=== PATIENT | male | born 1945 | race Caucasian/White ===

== ENCOUNTER 2017-03-05 11:07 | Observation (INO) ==
[2017-03-05 11:38] LABS: Basophils % 0.7 %; Eosinophils # 0.1 K/mcL (0.0-0.6); Eosinophils % 2.6 %; Hematocrit 41.3 % (37.5-50.1); Hemoglobin 13.4 g/dL (12.9-16.9); Immature Granulocytes % 0.2 % (0-4); Lymphocytes # 1.4 K/mcL (0.6-4.6); Lymphocytes % 26.1 %; Mean Corpuscular HGB Conc 32.4 g/dL (31.6-35.5); Mean Corpuscular Hemoglobin 28.9 pg (28.0-33.3); Mean Corpuscular Volume 89.2 fL (83.0-100.0); Mean Platelet Volume 9.7 fL (9.4-12.4); Monocytes # 0.7 K/mcL (0.0-1.3); Monocytes % 12.1 %; Neutrophils # 3.2 K/mcL (1.6-8.9); Platelet Count 176 K/mcL (140-400); Red Blood Count 4.63 M/mcL (4.19-5.50); Red Cell Distribution Width 13.6 % (11.5-14.5); Segmented Neutrophils % 58.3 %
--- NOTE | 2017-03-05 11:41 | Emergency Department Note ---
Disposition Clinical Impression: Near syncope, Numbness of left hand Chest pain Qualifiers: Chest pain type: unspecified Qualified Code(s): R07.9 - Chest pain, unspecified Disposition: Admitted As Inpatient Condition: Good [facility]Primary Care Provider[facility] - Forms: ED Satisfaction Letter General Adult HPI - General Chief complaint: ED Extremity Problem,Nontraumatic Stated complaint: numbness in left arm// heart pt Time Seen by Provider: 03/05/17 11:20 Source: patient Mode of arrival: private vehicle Limitations: no limitations Nursing Notes Reviewed: Yes Vital Signs Reviewed: Yes - History of Present Illness HPI Narrative: 71-year-old male history of atrial fibrillation, CAD with a sense, hypertension , hyperlipidemia who presents to the ER with a chief complaint of left hand numbness. Patient states his hand started getting numb a few days ago. He denies any recent trauma. He does have a history of shoulder issues and reports that he does need his left shoulder replacement has not set a date. He goes on to say that for the last 4 days he has had intermittent near syncopal episodes. He states that he can be at rest or with exertion. Reports that he gets lightheaded and feels like he is going to pass out. He was sitting around symptoms go away after an hour or 2. He reports he woke up this morning with left-sided chest pain that resolved prior to arrival. He does report dyspnea on exertion which is new for him. Denies any active chest pain. No other complaints. Pt Subjective Complaint: Left arm numbness, chest pain, dyspnea Onset (ago): day(s) Location: chest, left, upper extremity Radiation: non-radiation Pain Scale: 0 Consistency: now resolved Improves with: nothing Worsens with: nothing Associated symptoms: Reports: chest pain, cough (Chronic), shortness of breath. Denies: fever/chills, nausea/vomiting Treatments Prior to Arrival: Aspirin - Related Data Home Medications Medication Instructions Recorded Confirmed RX: Clopidogrel [Plavix] 75 mg PO DAILY 11/17/15 03/05/17 RX: Lisinopril [Zestril] 2.5 mg PO DAILY 11/17/15 03/05/17 RX: Niacin [Niacor] 500 mg PO DAILY 11/17/15 03/05/17 RX: [place]-3/Dha/Epa/Fish Oil [Fish 1,000 mg PO DAILY 11/17/15 03/05/17 Oil 1,000 mg Softgel] Atorvastatin Calcium [Lipitor] 20 mg PO HS 03/05/17 03/05/17 Cholecalciferol (D-3) [Vitamin D] 1,000 unit PO DAILY 03/05/17 03/05/17 Isosorbide MONOnitrate (24 HR) 30 mg PO DAILY 03/05/17 03/05/17 [Imdur] Metoprolol XL (24 HR) Succ [Toprol 25 mg PO DAILY 03/05/17 03/05/17 XL] RX: Terazosin HCl 2 mg PO HS 03/05/17 03/05/17 Rivaroxaban [Xarelto] 20 mg PO DAILY 03/05/17 03/05/17 Allergies Allergy/AdvReac Type Severity Reaction Status Date / Time No Known Allergies Allergy Verified 11/17/15 06:46 All systems ED: reviewed and negative except as stated. Constitutional: Denies: fever Cardiovascular: Reports: chest pain, dyspnea on exertion Respiratory: Reports: cough. Denies: dyspnea Gastrointestinal: Denies: abdominal pain, nausea, vomiting Musculoskeletal: Denies: back pain, neck pain Neurological: Reports: numbness (Left hand) Past Medical History - Past Medical History Attestation: Yes The following information was validated with the patient. Source: patient Medical history: Reports: coronary artery disease, GERD, hyperlipidemia, hypertension, myocardial infarction, other Psychiatric history: Reports: no psych history - Social History Smoking Status: Former smoker Smokeless Tobacco Status: No Alcohol use: Reports: none Drug use: Reports: none Physical Exam - General Limitations: no limitations General appearance: alert, in no apparent distress - Head Head exam: atraumatic, normocephalic, normal inspection - Eye Eye exam: Present: normal appearance, EOMI - ENT ENT exam: normal exam - Neck Neck exam: Present: normal inspection, full ROM - Chest Chest inspection: Present: normal inspection, symmetric chest wall rise - Respiratory Respiratory exam: Present: normal lung sounds bilaterally - Cardiovascular Cardiovascular exam: Present: regular rate, normal rhythm, normal heart sounds - Abdominal Exam Abdominal exam: Present: soft, Non-Tender. Absent: tenderness - Extremities Exam Extremities exam: Present: normal inspection, full ROM - Expanded Upper Extremity Exam Shoulder exam: Present: normal inspection, full ROM Arm exam: Present: normal inspection, full ROM Elbow exam: Present: normal inspection, full ROM Forearm/Wrist exam: Present: normal inspection, full ROM Hand exam: Present: normal inspection, full ROM, other (Patient has decreased sensation to the left hand and distal forearm. Muscle strength is preserved. Radial pulse 2+.) Vascular exam: Normal: radial pulse - Expanded Lower Extremity Exam Hip/Pelvis exam: Present: normal inspection, full ROM Upper leg exam: Present: normal inspection, full ROM Knee exam: Present: normal inspection, full ROM Lower leg exam: Present: normal inspection, full ROM Ankle exam: Present: normal inspection, full ROM Foot/toe exam: Present: normal inspection, full ROM Neurovascular/Tendon exam: Absent: motor deficit - Neurological Exam Neurological exam: Present: alert, other (GCS 15. Decreased sensation to the left hand and distal forearm. Muscle strength symmetric.) - Psychiatric Psychiatric exam: Present: normal affect, normal mood - Skin Skin exam: Present: warm, dry, intact, normal color Course Course Narrative: Patient seen and examined. We will obtain an EKG, chest x-ray as well as labs including troponin and BNP. His numbness in his hand seems more correlated to to his prior shoulder issues. He does endorse near syncope with chest pain this morning. He has an extensive cardiac history with last stent placement in 2014. Patient will likely require admission for chest pain rule out and near syncope. Patient in agreement with plan. Vital Signs Temperature 97.4 F L 03/05/17 11:09 Pulse Rate 82 03/05/17 11:09 Respiratory Rate 16 03/05/17 11:09 Blood Pressure 150/74 03/05/17 11:09 O2 Sat by Pulse Oximetry 97 03/05/17 11:09 Temperature 97.4 F L 03/05/17 11:09 Pulse Rate 60 03/05/17 11:34 Respiratory Rate 16 03/05/17 11:34 Blood Pressure 139/83 03/05/17 11:34 O2 Sat by Pulse Oximetry 97 03/05/17 11:34 Oxygen Delivery Oxygen Delivery Room Air Medical Decision Making - MDM Narrative Medical decision making narrative: 71-year-old male presents to the ER due to left hand numbness. Prior history of shoulder issues and currently reports he needs a total left shoulder replacement in the near future. He also went on to say he was having near- syncope over the last few days as well as chest pain this morning. His an extensive cardiac history with blast him placed in 2014. His EKG here is paced and nonischemic. Chest x-ray is unremarkable. Troponin and BNP are within normal limits. Patient accepted to the hospitalist service. - Lab Data Lab results reviewed: Yes I reviewed the patient's lab results. Result diagrams: 03/05/17 11:29 03/05/17 11:29 Lab Results 03/05/17 03/05/17 03/05/17 Range/Units 11:29 11:29 11:29 WBC 5.5 (4.3-11.1) K/mcL RBC 4.63 (4.19-5.50) M/mcL Hgb 13.4 (12.9-16.9) g/dL Hct 41.3 (37.5-50.1) % MCV 89.2 (83.0-100.0) fL MCH 28.9 (28.0-33.3) pg MCHC 32.4 (31.6-35.5) g/dL RDW 13.6 (11.5-14.5) % Plt Count 176 (140-400) K/mcL MPV 9.7 (9.4-12.4) fL Immature Gran % 0.2 (0-4) % Seg Neutrophils % 58.3 % Lymphocytes % 26.1 % Monocytes % 12.1 % Eosinophils % 2.6 % Basophils % 0.7 % Neutrophils # 3.2 (1.6-8.9) K/mcL Lymphocytes # 1.4 (0.6-4.6) K/mcL Monocytes # 0.7 (0.0-1.3) K/mcL Eosinophils # 0.1 (0.0-0.6) K/mcL Basophils # 0.0 (0.0-0.2) K/mcL Sodium 143 (136-145) mEq/L Potassium 3.8 (3.5-4.5) mEq/L Chloride 107 (98-109) mEq/L Carbon Dioxide 28 (19-29) mEq/L BUN 20 (8-26) mg/dL Creatinine 1.06 (0.72-1.25) mg/dL Est GFR ( Amer) > 60 (> 60) Est GFR (Non-Af Amer) > 60 (> 60) BUN/Creatinine Ratio 19 (6-26) Glucose 66 L (70-99) mg/dL Calculated Osmolality 297 (280-300) Calcium 8.9 (8.6-10.8) mg/dL Troponin I (0-0.03) ng/mL B-Natriuretic Peptide 51 (0-100) pg/mL 03/05/17 Range/Units 11:29 WBC (4.3-11.1) K/mcL RBC (4.19-5.50) M/mcL Hgb (12.9-16.9) g/dL Hct (37.5-50.1) % MCV (83.0-100.0) fL MCH (28.0-33.3) pg MCHC (31.6-35.5) g/dL RDW (11.5-14.5) % Plt Count (140-400) K/mcL MPV (9.4-12.4) fL Immature Gran % (0-4) % Seg Neutrophils % % Lymphocytes % % Monocytes % % Eosinophils % % Basophils % % Neutrophils # (1.6-8.9) K/mcL Lymphocytes # (0.6-4.6) K/mcL Monocytes # (0.0-1.3) K/mcL Eosinophils # (0.0-0.6) K/mcL Basophils # (0.0-0.2) K/mcL Sodium (136-145) mEq/L Potassium (3.5-4.5) mEq/L Chloride (98-109) mEq/L Carbon Dioxide (19-29) mEq/L BUN (8-26) mg/dL Creatinine (0.72-1.25) mg/dL Est GFR ( Amer) (> 60) Est GFR (Non-Af Amer) (> 60) BUN/Creatinine Ratio (6-26) Glucose (70-99) mg/dL Calculated Osmolality (280-300) Calcium (8.6-10.8) mg/dL Troponin I 0.01 (0-0.03) ng/mL B-Natriuretic Peptide (0-100) pg/mL - Radiology Data Radiology results reviewed: Yes I reviewed the patient's radiology results. Chest X-Ray 03/05/17 11:32 IMPRESSION: No acute cardiac or pulmonary disease. D/ / Pierre Lyons MD / Pierre Lyons MD Interpreting Provider: Pierre Lyons MD Chest X-Ray 03/05/17 11:32 IMPRESSION: No acute cardiac or pulmonary disease. D/ / Pierre Lyons MD / Pierre Lyons MD Interpreting Provider: Pierre Lyons MD Head CT 03/05/17 12:54 IMPRESSION: 1. No acute intracranial abnormality. D/ / Igor Goncalves MD / Igor Goncalves MD Interpreting Provider: Igor Goncalves MD - EKG Data EKG #1 EKG attestation: Yes I reviewed and interpreted this EKG. EKG results narrative: EKG demonstrates a paced rhythm with a rate of 61 bpm. Left axis deviation. UT interval prolonged at 209. QRS duration [address]Tc [address] No gross ST elevations or depressions. No acute ischemic findings. No significant changes from previous EKG dated 09/12/14. S.B.A.R. - S.B.A.RMarlene Situation: Demographics, MOA Background: Presenting Complaint, Relevant PMH, Meds, & Allergies Assessment: Vital Signs, Course and respsone to treatment, Exam Concerns, Patient/Family Expectation, Pertinant Lab Results, Outstanding Labs Recommendation: Barrier(s) to disposition, Recommendation based on pending studies, treatments, or consults S.B.A.R. Report Given to: Mike Bianchi Repor Time: 13:02 (requests Head CT)
[2017-03-05 11:45] LABS: BUN/Creatinine Ratio 19 (6-26); Blood Urea Nitrogen 20 mg/dL (8-26); Calcium 8.9 mg/dL (8.6-10.8); Carbon Dioxide 28 mEq/L (19-29); Chloride 107 mEq/L (98-109); Glucose 66 mg/dL (70-99); Osmolality,Calculated 297 (280-300); Potassium 3.8 mEq/L (3.5-4.5); Sodium 143 mEq/L (136-145); eGFR For African Americans > 60 (> 60); eGFR For Non-African Americans > 60 (> 60)
[2017-03-05] MEDS ORDERED: 0.9 % Sodium Chloride 1,000 ML IVC ONE (11:47)
--- NOTE | 2017-03-05 12:32 | Emergency Department Note ---
Disposition Clinical Impression: Near syncope, Numbness of left hand Chest pain Qualifiers: Chest pain type: unspecified Qualified Code(s): R07.9 - Chest pain, unspecified Disposition: Admitted As Inpatient Condition: Good [facility]: [facility] [Primary Care Provider] - Forms: ED Satisfaction Letter General Adult HPI - General Chief complaint: ED Extremity Problem,Nontraumatic Stated complaint: numbness in left arm// heart pt Time Seen by Provider: 03/05/17 11:20 Source: patient Mode of arrival: private vehicle Limitations: no limitations - History of Present Illness Location: chest, left, upper extremity Pain Scale: 0 Improves with: nothing Worsens with: nothing Associated symptoms: Reports: chest pain, cough (Chronic), shortness of breath. Denies: fever/chills, nausea/vomiting Treatments Prior to Arrival: Aspirin - Related Data Home Medications Medication Instructions Recorded Confirmed Aspirin Enteric Coated [Aspirin EC] 81 mg PO DAILY 11/17/15 11/17/15 Atorvastatin [Lipitor] 40 mg PO HS 11/17/15 11/17/15 Carvedilol 0.5 tab PO BID 11/17/15 11/17/15 Clopidogrel [Plavix] 75 mg PO DAILY 11/17/15 11/17/15 Ergocalciferol (VITAMIN D2) 2,000 unit PO DAILY 11/17/15 11/17/15 [Vitamin D2] HYDROcodone/Acet 5/325 mg [[place] 1 tab PO Q8H PRN 11/17/15 11/17/15 5-325 mg] Isosorbide MONOnitrate (24 HR) 30 mg PO DAILY 11/17/15 11/17/15 [Imdur] Lisinopril [Zestril] 5 mg PO DAILY 11/17/15 11/17/15 Magnesium Oxide [Magnesium] 400 mg PO DAILY 11/17/15 11/17/15 Niacin [Niacor] 500 mg PO DAILY 11/17/15 11/17/15 Nitroglycerin [Nitrostat] 0.4 mg SL DAILY PRN 11/17/15 11/17/15 [place]-3/Dha/Epa/Fish Oil [Fish Oil 1,000 mg PO DAILY 11/17/15 11/17/15 1,000 mg Softgel] Potassium 99 mg PO DAILY 11/17/15 11/17/15 Ranitidine HCl [Zantac] 300 mg PO HS 11/17/15 11/17/15 Terazosin HCl 30 mg PO DAILY 11/17/15 11/17/15 Previous Rx's Medication Instructions Recorded Aspirin Enteric Coated [Aspirin EC] 81 mg PO DAILY #21 tablet. 11/16/15 OxyCODONE Immed Rel [Roxicodone 5 5 - 10 mg PO Q6HR PRN #40 tablet 11/16/15 MG] Allergies Allergy/AdvReac Type Severity Reaction Status Date / Time No Known Allergies Allergy Verified 11/17/15 06:46 Constitutional: Denies: fever Cardiovascular: Reports: chest pain, dyspnea on exertion Respiratory: Reports: cough. Denies: dyspnea Gastrointestinal: Denies: abdominal pain, nausea, vomiting Musculoskeletal: Denies: back pain, neck pain Neurological: Reports: numbness (Left hand) Past Medical History - Past Medical History Medical history: Reports: coronary artery disease, GERD, hyperlipidemia, hypertension, myocardial infarction, other Psychiatric history: Reports: no psych history - Social History Smoking Status: Former smoker Smokeless Tobacco Status: No Alcohol use: Reports: none Drug use: Reports: none Physical Exam - General Limitations: no limitations General appearance: alert, in no apparent distress Course - Reevaluation(s) Reevaluation #1: I saw the patient with the resident, Dr. Marquez. Patient presented with several days of feeling weak. Episodes of just not feeling right and when that happens he has to go and lay down. He does not report chest pain episodes over the past few days but this morning in bed had a chest tightness on the left side of his chest that seemed to radiate to his left arm. He has an extensive cardiac history with multiple stents. Overall story is concerning for worsening cardiac state. At this time he is symptom-free. EKG looks alright. Labs look alright. Nonetheless think he needs to be admitted to the hospital for rule out NM. Time: 12:33 Vital Signs Temperature 97.4 F L 03/05/17 11:09 Pulse Rate 82 03/05/17 11:09 Respiratory Rate 16 03/05/17 11:09 Blood Pressure 150/74 03/05/17 11:09 O2 Sat by Pulse Oximetry 97 03/05/17 11:09 Temperature 97.4 F L 03/05/17 11:09 Pulse Rate 60 03/05/17 11:34 Respiratory Rate 16 03/05/17 11:34 Blood Pressure 139/83 03/05/17 11:34 O2 Sat by Pulse Oximetry 97 03/05/17 11:34 Oxygen Delivery Oxygen Delivery Room Air Medical Decision Making - Lab Data Result diagrams: 03/05/17 11:29 03/05/17 11:29 Lab Results 03/05/17 03/05/17 03/05/17 Range/Units 11:29 11:29 11:29 WBC 5.5 (4.3-11.1) K/mcL RBC 4.63 (4.19-5.50) M/mcL Hgb 13.4 (12.9-16.9) g/dL Hct 41.3 (37.5-50.1) % MCV 89.2 (83.0-100.0) fL MCH 28.9 (28.0-33.3) pg MCHC 32.4 (31.6-35.5) g/dL RDW 13.6 (11.5-14.5) % Plt Count 176 (140-400) K/mcL MPV 9.7 (9.4-12.4) fL Immature Gran % 0.2 (0-4) % Seg Neutrophils % 58.3 % Lymphocytes % 26.1 % Monocytes % 12.1 % Eosinophils % 2.6 % Basophils % 0.7 % Neutrophils # 3.2 (1.6-8.9) K/mcL Lymphocytes # 1.4 (0.6-4.6) K/mcL Monocytes # 0.7 (0.0-1.3) K/mcL Eosinophils # 0.1 (0.0-0.6) K/mcL Basophils # 0.0 (0.0-0.2) K/mcL Sodium 143 (136-145) mEq/L Potassium 3.8 (3.5-4.5) mEq/L Chloride 107 (98-109) mEq/L Carbon Dioxide 28 (19-29) mEq/L BUN 20 (8-26) mg/dL Creatinine 1.06 (0.72-1.25) mg/dL Est GFR ( Amer) > 60 (> 60) Est GFR (Non-Af Amer) > 60 (> 60) BUN/Creatinine Ratio 19 (6-26) Glucose 66 L (70-99) mg/dL Calculated Osmolality 297 (280-300) Calcium 8.9 (8.6-10.8) mg/dL Troponin I (0-0.03) ng/mL B-Natriuretic Peptide 51 (0-100) pg/mL 03/05/17 Range/Units 11:29 WBC (4.3-11.1) K/mcL RBC (4.19-5.50) M/mcL Hgb (12.9-16.9) g/dL Hct (37.5-50.1) % MCV (83.0-100.0) fL MCH (28.0-33.3) pg MCHC (31.6-35.5) g/dL RDW (11.5-14.5) % Plt Count (140-400) K/mcL MPV (9.4-12.4) fL Immature Gran % (0-4) % Seg Neutrophils % % Lymphocytes % % Monocytes % % Eosinophils % % Basophils % % Neutrophils # (1.6-8.9) K/mcL Lymphocytes # (0.6-4.6) K/mcL Monocytes # (0.0-1.3) K/mcL Eosinophils # (0.0-0.6) K/mcL Basophils # (0.0-0.2) K/mcL Sodium (136-145) mEq/L Potassium (3.5-4.5) mEq/L Chloride (98-109) mEq/L Carbon Dioxide (19-29) mEq/L BUN (8-26) mg/dL Creatinine (0.72-1.25) mg/dL Est GFR ( Amer) (> 60) Est GFR (Non-Af Amer) (> 60) BUN/Creatinine Ratio (6-26) Glucose (70-99) mg/dL Calculated Osmolality (280-300) Calcium (8.6-10.8) mg/dL Troponin I 0.01 (0-0.03) ng/mL B-Natriuretic Peptide (0-100) pg/mL Attestation Statement - Attestation Attestation: I, Dr. Ashley, examined this patient [id number] and my medical decision- making was reviewed with the Resident Physician, Dr. Marquez. I agree with the documented findings, disposition and treatment plan as described except to the extent set forth below. Please see my progress notes for details.
[2017-03-05] MEDS ORDERED: *HR* Morphine 2 MG/ML SYRINGE IVP PRN (13:57)
[2017-03-05] MEDS ORDERED: Naloxone 0.4 MG/ML INJ IVP PRN (13:57)
[2017-03-05] MEDS ORDERED: Ondansetron 4 MG/2 ML VIAL IVP PRN (13:57)
[2017-03-05] MEDS ORDERED: *HR* HYDROcodone/Acet 5/325 mg TABLET PO PRN (13:57)
[2017-03-05] MEDS ORDERED: Acetaminophen 325 MG TABLET PO PRN (13:57)
[2017-03-05] MEDS ORDERED: *HR* Dextrose 50 % in Water (Syg) 50 ML SYRINGE IVP PRN (14:18)
[2017-03-05] MEDS ORDERED: D5% in Water 1,000 ML IVC PRN (14:18)
[2017-03-05] MEDS ORDERED: Dextrose Gel 15 GM PO PRN ×2 (14:18)
[2017-03-05] MEDS ORDERED: Nitroglycerin 0.4 MG TAB.SUBL SL PRN (14:26)
--- NOTE | 2017-03-05 15:28 | Internal Med History&Physical ---
<Mike Zimmerman - Last Filed: 03/05/17 16:13> Date of Encounter: 03/05/17 Time of Encounter: 13:30 Assessment and Plan (1) Chest pain Current visit: Yes Status: Acute Patient presents with left-sided chest pain that he states began several days ago and has become worse. Pain is accompanied by numbness of the lower left arm and hand that has not resolved. Patient's initial troponin on admission to ED was 0.01. Patient's risk factors include coronary artery disease, hyperlipidemia, hypertension, and previous myocardial infarctions. Patient also reports he smoked 1 PPD up until 1994. Cardiology consult ordered. Patient to be placed on continuous cardiac telemetry with supplemental O2, troponins to be trended x2, nitro PRN, will continue patient's HTN and HLD medications, aspirin therapy. Echocardiogram ordered. Will digress to cardiology to decide if stress test is appropriate based on echocardiogram results and consult recommendations. Qualifiers: Chest pain type: other chest pain Qualified Code(s): R07.89 - Other chest pain; R07.8 - Other chest pain (2) Numbness of left hand Current visit: Yes Status: Acute Patient presents with acute numbness of the lower left arm and hand that began three days ago and coincided with patient's reported chest pain. Patient states CP is left-sided. Patient denies previous history of these symptoms before. Original concern was for possible neuro deficits, however patient is neurologically intact on examination with strength equal bilaterally. Initial troponin 0.01. CT of the head shows no acute intracranial abnormality. Patient to be monitored for further neuro deficits. Patient placed on continuous cardiac telemetry with troponin trending. (3) GERD (gastroesophageal reflux disease) Current visit: Yes Status: Chronic Patient presents with history of chronic GERD. IVP Zofran Q6 PRN and IVP Protonix 40 mg daily ordered. Qualifiers: Esophagitis presence: esophagitis presence not specified Qualified Code(s) : K21.9 - Gastro-esophageal reflux disease without esophagitis (4) CAD (coronary artery disease) Current visit: Yes Status: Chronic Patient presents with history of CAD and current chest pain symptoms. Patient's initial troponin on admission to [facility] was 0.01. Patient describes CP as left- sided with numbness in his left lower arm and hand since this morning. Patient placed on continuous cardiac telemetry with troponins trended 2. Nitroglycerin when necessary. Will continue patient's HLD and HTN medications. Daily aspirin therapy. Cardiology consult placed in the ED. Will digress to cardiology to decide if stress test is appropriate based on echocardiogram results and consult recommendations. Qualifiers: Coronary Disease-Associated Artery/Lesion type: [place] artery [place] vs. transplanted heart: unspecified whether [place] or transplanted heart Associated angina: angina presence unspecified Qualified Code(s): I25.10 - Atherosclerotic heart disease of [place] coronary artery without angina pectoris (5) HLD (hyperlipidemia) Current visit: Yes Status: Chronic Patient presents with history of chronic hyperlipidemia. Lipid panel ordered and will continue patient's Lipitor. Qualifiers: Hyperlipidemia type: pure hypercholesterolemia Qualified Code(s): E78.00 - Pure hypercholesterolemia, unspecified; E78.0 - Pure hypercholesterolemia (6) HTN (hypertension) Current visit: Yes Status: Chronic Patient presents with history of chronic hypertension. Will monitor patient vital signs and continue patient's Imdur, lisinopril, Terazosin, and metoprolol. Qualifiers: Hypertension type: essential hypertension Qualified Code(s): I10 - Essential (primary) hypertension (7) Pacemaker Current visit: Yes Status: Chronic Patient presents with history of pacemaker/AICD placement. Patient reports this is his second pacemaker. Will continue patient's Xarelto and Plavix. (8) DVT prophylaxis Current visit: Yes Status: Acute Patient to be placed on DVT prophylaxis due to current admission protocol and current symptoms. Will continue patient's Xarelto and Plavix. Internal Medicine - H&P: HPI Chief complaint: Chest pain/Numbness in left arm and hand Admitted From: Emergency Dept Plans for Post Hospital Care: Home History of present illness: Mr. Lopez is a 71 year old male who presents from the ED with chief complaint of left-sided chest pain and numbness of the left lower arm and hand for the past three days that has become progressively worse. Patient also reports left shoulder pain due to his left shoulder needing replaced. Patient also reports weakness, SOB, and dizziness. Patient denies syncope or pre-syncope. He states his CP and SOB worsen with exertion. Mr. Lopez denies recent illness, cough, fever, chills, nausea, vomiting, diarrhea, constipation, abdominal pain, headache, changes in vision, presyncope or syncope. Patient's past medical history includes atrial fibrillation with pacemaker placement, coronary artery disease, hypertension, hyperlipidemia, GERD, and previous myocardial infarctions. She reports he was a former smoker smoking 1 pack per day up until 1994. Patient's initial troponin was 0.[address] on [address] ED[address] CT of the head to rule out possible CVA related to left arm/hand numbness shows no acute intracranial abnormaility. Patient is currently hemodynamically stable and information was taken from patient, chart review, and previous medical records. Mr. Lopez is at high risk for cardiac event based on current symptoms and risk factors and will be placed as observation status with consult to cardiology placed. Time spent with patient and family greater than 40 minutes. Past Med Surg Social Fam HX - Past Medical History Source: patient, old records reviewed Medical history: coronary artery disease, GERD, hyperlipidemia, hypertension, myocardial infarction, other Psychiatric history: no psych history - Past Surgical History Surgical History: pacemaker/AICD - Social History Smoking Status: Former smoker Packs per day: 1 but quit in 1994 Smokeless Tobacco Status: No Alcohol use: none Drug use: none Occupational status: retired Current living situation: Home, With Family Activity Level: Independent ambulation Recent Out of Country Travel Within the Last 8 Weeks: No Exposure or Possible Exposure to Illness During Travel: No - Family History Father Race: Family Member Ethnicity: Non- Living Status: Age at : 80 Cause of : Old age Hx Family Medical Disorders: No Mother Race: Family Member Ethnicity: Non- Living Status: Age at : 84 Cause of : ND Hx Family Cardiac Disorders: Yes (ND, HLD, HTN, HD) Hx Family Endocrine Disorder: Yes (DM) Brother Race: Family Member Ethnicity: Non- Living Status: Age at : 62 Cause of : Leukemia Hx Family Cardiac Disorders: Yes (HD) Hx Family Cancer: Yes (Leukemia) Hx Family Endocrine Disorder: Yes (DM) Sister Race: Family Member Ethnicity: Non- Living Status: Age at : 43 Cause of : Cancer Hx Family Cardiac Disorders: Yes (HD) Hx Family Cancer: Yes (Unknown) Hx Family Endocrine Disorder: Yes (DM) Internal Medicine - H&P: Meds Clopidogrel [Plavix] 75 mg PO DAILY 11/17/15 [History] Lisinopril [Zestril] 2.5 mg PO DAILY 11/17/15 [History] Niacin [Niacor] 500 mg PO DAILY 11/17/15 [History] [place]-3/Dha/Epa/Fish Oil [Fish Oil 1,000 mg Softgel] 1,000 mg PO DAILY 11/17/15 [History] Atorvastatin Calcium [Lipitor] 20 mg PO HS 03/05/17 [History] Cholecalciferol (D-3) [Vitamin D] 1,000 unit PO DAILY 03/05/17 [History] Isosorbide MONOnitrate (24 HR) [Imdur] 30 mg PO DAILY 03/05/17 [History] Metoprolol XL (24 HR) Succ [Toprol XL] 25 mg PO DAILY 03/05/17 [History] Rivaroxaban [Xarelto] 20 mg PO DAILY 03/05/17 [History] Terazosin HCl 2 mg PO HS 03/05/17 [History] 3 Allergy/AdvReac Type Severity Reaction Status Date / Time No Known Allergies Allergy Verified 11/17/15 06:46 All Systems PM: A 10-system review of systems was performed and is negative for pertinent findings except as documented above in the HPI. - Constitutional Constitutional: no chills, no fever(s), no night sweats - EENT Eyes: no change in vision, no discharge, no pain, no photophobia Ears: no ear discharge, no ear pain, no tinnitus Nose, mouth and throat: no dysphagia, no nasal discharge, no neck pain, no sore throat - Breasts Breasts: as per HPI - Cardiovascular Cardiovascular ROS IM: as per HPI, chest pain, dyspnea, dyspnea on exertion, lightheadedness - Respiratory Respiratory: as per HPI, dyspnea, dyspnea on exertion - Gastrointestinal Gastrointestinal: no abdominal pain, no diarrhea, no hematemesis, no hematochezia, no melena, no nausea, no vomiting - Genitourinary Genitourinary ROS male: as per HPI - Musculoskeletal Musculoskeletal ROS IM: arthralgias, no numbness, no tingling - Integumentary Integumentary IM: no rash, no unusual bruising - Neurological Neurological ROS: numbness (Left lower arm and hand that started today), weakness (Left lower arm and hand), no confusion, no convulsions, no focal weakness, no tingling, no tremor(s) - Psychiatric Psychiatric: as per HPI - Endocrine Endocrine IM: as per HPI - Hematologic/Lymphatic Hematologic/Lymphatic: no easy bruising - Allergic/Immunologic Allergic/Immunologic: as per HPI - Constitutional Vitals: Temp Pulse Resp BP Pulse Ox 98.1 F 61 16 161/89 97 03/05/17 15:20 03/05/17 15:20 03/05/17 15:20 03/05/17 15:20 03/05/17 15:20 General appearance: Present: cooperative, A&O X 3, pleasant, no acute distress, answers questions appropriately - Head Head exam: Present: atraumatic, normocephalic - Eye Eye exam: Present: PERRL, conjuntiva pink, sclera anicteric Pupils: Present: PERRL - ENT ENT exam: Present: normal exam, normal external ear exam - Neck Neck exam general surgery: Present: normal inspection, supple, trachea midline. Absent: lymphadenopathy - Respiratory Respiratory exam: Present: CTAB. Absent: accessory muscle use, rales, rhonchi, wheezes - Cardiovascular Cardiovascular exam: Present: RRR, +S1, +S2. Absent: diastolic murmur, gallop, rubs, systolic murmur - GI/Abdominal GI/Abdominal exam: Present: normal bowel sounds, soft, no peritoneal signs. Absent: distended, tenderness - Rectal Rectal exam: Present: deferred - Additional comments: exam deferred. - Extremities Exam Extremities exam: Present: warm, radial pulses palpable and symmetrical. Absent : calf tenderness, cyanotic, pedal edema - Back Exam Back exam: Present: normal inspection - Neurological Exam Neurological exam: Present: CN II-XII intact, oriented X3, no focal deficits. Absent: pronater drift, facial droop, speech deficit - Psychiatric Psychiatric exam: Present: normal affect, normal mood - Skin Skin exam: Present: dry, intact Internal Med - H&P Results - Labs CBC & Chem 7: 03/05/17 11:29 03/05/17 11:29 - EKG Data Prior EKG available for review: yes When compared to previous EKG: there is no significant change EKG comments: 03/05/17 15:36 EKG dated 09/12/14 shows electronic atrial pacemaker, low QRS voltage in the extremity leads, abnormal rhythm ECG. EKG dated 03/05/17 shows electronic atrial pacemaker, electronic ventricular pacemaker, abnormal rhythm ECG. - Diagnostic Studies Chest x-ray Additional comments: Impressions Chest X-Ray 03/05/17 11:32 IMPRESSION: No acute cardiac or pulmonary disease. D/ / Pierre Lyons MD / Pierre Lyons MD Interpreting Provider: Pierre Lyons MD CT scan - head Additional comments: Impressions Head CT 03/05/17 12:54 IMPRESSION: 1. No acute intracranial abnormality. D/ / Igor Goncalves MD / Igor Goncalves MD Interpreting Provider: Igor Goncalves MD <Greyson Radford - Last Filed: 03/05/17 20:30> Date of Encounter: 03/05/17 Internal Medicine - H&P: HPI History of present illness: Mr. Lopez is a 71 year old male All Systems PM: A 10-system review of systems was performed and is negative for pertinent findings except as documented above in the HPI. - Constitutional Vitals: Temp Pulse Resp BP Pulse Ox 97.9 F 61 15 156/81 97 03/05/17 19:04 03/05/17 19:04 03/05/17 19:04 03/05/17 19:04 03/05/17 19:04 Internal Med - H&P Results - Labs CBC & Chem 7: 03/05/17 11:29 03/05/17 11:29 Labs: Cardiac Enzymes 03/05/17 Range/Units 17:07 Troponin I 0.00 (0-0.03) ng/mL - Attending Attestation I have seen and examined the patient. I reviewed the orders and the note. Patient is a 71-year-old male with a past medical history of coronary artery disease, GERD, hyperlipidemia and hypertension. Patient presented to the ED with complaints of chest pain and numbness in left hand. Initial EKG revealed paced rhythm with a rate of 61 and left axis deviation. No acute ST changes. Troponin is negative. BNP peptide is normal. We will trend troponin. Patient is on aspirin and Plavix and salt. He is also on Lipitor. Cardiology will evaluate patient. Stress echo may need to be done. Patient states he feels better at this time. No other complaints. Heart rate 61, blood pressure 156/81, O2 sat 97% on room air. Heart S1-S2 positive. Lungs bilateral good air entry no wheezes or crackles. Abdomen soft nontender. Extremities all pulses strong. Neurological patient is awake and alert, strength 5 out of 5 in all extremities, patient does have mild weakness in left arm due to left shoulder osteoarthritis
[2017-03-05] MEDS: Insulin LISPRO 300 UNITS/3 ML VIAL SQ SCH ×2 (18:38→20:05)
[2017-03-05] MEDS: Pantoprazole 40 MG VIAL IVP SCH (18:44)
[2017-03-06 01:06] LABS: Basophils % 0.6 %; Eosinophils # 0.2 K/mcL (0.0-0.6); Eosinophils % 3.3 %; Hematocrit 38.8 % (37.5-50.1); Hemoglobin 12.6 g/dL (12.9-16.9); Immature Granulocytes % 0.2 % (0-4); Lymphocytes # 1.7 K/mcL (0.6-4.6); Lymphocytes % 31.4 %; Mean Corpuscular HGB Conc 32.5 g/dL (31.6-35.5); Mean Corpuscular Hemoglobin 28.4 pg (28.0-33.3); Mean Corpuscular Volume 87.6 fL (83.0-100.0); Mean Platelet Volume 10.2 fL (9.4-12.4); Monocytes # 0.6 K/mcL (0.0-1.3); Monocytes % 11.2 %; Neutrophils # 2.9 K/mcL (1.6-8.9); Platelet Count 170 K/mcL (140-400); Red Blood Count 4.43 M/mcL (4.19-5.50); Red Cell Distribution Width 13.5 % (11.5-14.5); Segmented Neutrophils % 53.3 %
[2017-03-06 01:10] LABS: INR 1.3
[2017-03-06 01:12] LABS: Activated Partial Thrombo Time 37.1 Seconds (26.0-36.0)
[2017-03-06 01:17] LABS: BUN/Creatinine Ratio 15 (6-26); Blood Urea Nitrogen 18 mg/dL (8-26); Calcium 8.3 mg/dL (8.6-10.8); Carbon Dioxide 26 mEq/L (19-29); Chloride 107 mEq/L (98-109); Chol/HDL Ratio 5.4 (0-4.9); Cholesterol 163 mg/dL (< 200); Glucose 98 mg/dL (70-99); HDL Cholesterol 30 mg/dL (40-59); LDL Cholesterol,Calculated 117 mg/dL (0-99); Magnesium 1.9 mg/dL (1.6-2.6); Osmolality,Calculated 292 (280-300); Sodium 140 mEq/L (136-145); Triglycerides 80 mg/dL (< 150); eGFR For African Americans > 60 (> 60); eGFR For Non-African Americans > 60 (> 60)
[2017-03-06 02:03] LABS: Hemoglobin A1C 5.6 %
[2017-03-06] MEDS: Insulin LISPRO 300 UNITS/3 ML VIAL SQ SCH ×4 (08:48→20:01)
[2017-03-06] MEDS: Pantoprazole 40 MG VIAL IVP SCH (08:49)
[2017-03-06] MEDS: Isosorbide MONOnitrate (24 HR) 30 MG TAB.ER.24H PO SCH (08:49)
[2017-03-06] MEDS: Metoprolol XL (24 HR) Succ 25 MG TAB.ER.24H PO SCH (08:50)
[2017-03-06] MEDS: Cholecalciferol (D-3) 1,000 UNIT TABLET PO SCH (08:50)
[2017-03-06] MEDS: Aspirin Enteric Coated 81 MG Tablet PO SCH (08:50)
[2017-03-06] MEDS: Niacin (24 HR) 500 MG TAB.ER.24H PO SCH (08:50)
[2017-03-06] MEDS: *HR* Rivaroxaban 10 MG TABLET PO SCH (08:50)
--- NOTE | 2017-03-06 17:03 | Internal Med Progress Note ---
Date of Encounter: 03/06/17 Time of Encounter: 10:30 - Assessment and plan (1) Chest pain Current Visit: Yes Status: Acute Assessment and plan: Patient denies chest pain today. He reports to me that the chest pain he only had one time it lasted 1 minute. Patient reports prior IN with stents, he has history of hypertension and coronary artery disease, he also is a former smoker. In admission note as a cardiology consult was ordered, I ordered a chest now, patient will be seen by cardiology in the morning. We will continue with telemetry with oxygen as needed to maintain sats greater than 92%. Will use nitroglycerin when necessary and continue home medications. Echocardiogram showed LVEF of 50-55% with normal systolic function, moderate diastolic dysfunction, no significant valvular dysfunction. Patient has no prior echocardiogram or any cardiovascular notes that all to compare. Troponins were negative 3. Patient's A1c is 5.6, cholesterol triglycerides are within normal limits. Cardiology consult in the morning, will defer to them regarding decision whether stress as necessary. Qualifiers: Chest pain type: other chest pain Qualified Code(s): R07.89 - Other chest pain; R07.8 - Other chest pain (2) CAD (coronary artery disease) Current Visit: Yes Status: Chronic Assessment and plan: Plan as above. Continue aspirin, statin, Plavix, Imdur, beta huber, and Xarelto. Qualifiers: Coronary Disease-Associated Artery/Lesion type: [place] artery [place] vs. transplanted heart: unspecified whether [place] or transplanted heart Associated angina: angina presence unspecified Qualified Code(s): I25.10 - Atherosclerotic heart disease of [place] coronary artery without angina pectoris (3) HTN (hypertension) Current Visit: Yes Status: Chronic Assessment and plan: Chronic. Continue home medications. Well-controlled in inpatient setting. Qualifiers: Hypertension type: essential hypertension Qualified Code(s): I10 - Essential (primary) hypertension (4) HLD (hyperlipidemia) Current Visit: Yes Status: Chronic Assessment and plan: Continue home medications. Qualifiers: Hyperlipidemia type: pure hypercholesterolemia Qualified Code(s): E78.00 - Pure hypercholesterolemia, unspecified; E78.0 - Pure hypercholesterolemia (5) Numbness of left hand Current Visit: Yes Status: Acute Assessment and plan: Patient reports numbness of left hand that is most likely not associated with the chest pain as they started at different times. Patient states that he is aware that he needs a left shoulder replacement. He is seeing Dr. Ceballos and had his right shoulder and left knee replaced by him. Head CT was negative, strengths are equal bilaterally in arms. Pulses are equal bilaterally. We will continue to monitor. (6) GERD (gastroesophageal reflux disease) Current Visit: Yes Status: Chronic Assessment and plan: Chronic. Continue home medications. Qualifiers: Esophagitis presence: esophagitis presence not specified Qualified Code(s) : K21.9 - Gastro-esophageal reflux disease without esophagitis (7) DVT prophylaxis Current Visit: Yes Status: Acute Assessment and plan: Patient is on aspirin, Plavix, and relative to. - Time Spent With Patient less than 15 minutes - Subjective Interval history: Patient was seen and assessed at bedside at 10:30 AM. He denies chest pain currently, however he did report left chest pain that was sharp, rated 3/10 with shortness of breath and no radiation, no nausea vomiting, no diaphoresis that lasted 1 minute. 2 days prior to admission he reports nausea and states, I felt real bad." Patient seems unable to describe how he felt other than nausea that was relieved with rest sometimes weak and dizzy. Patient still reports left hand and reports that he has a bad shoulder and is aware that he needs a shoulder replacement by Dr. Ceballos. His last stress test was here at [facility] and Dr. Ruiz is his primary clinical product manager. The pain is not reproducible. - Constitutional Vitals: Temp Pulse Resp BP Pulse Ox 98.5 F 60 14 99/62 96 03/06/17 16:00 03/06/17 16:00 03/06/17 16:00 03/06/17 16:00 03/06/17 16:00 General appearance: Present: cooperative, A&O X 3, pleasant, no acute distress, answers questions appropriately - Head Head exam: Present: atraumatic, normal inspection, normocephalic - Eye Eye exam: Present: conjuntiva pink, sclera anicteric - Neck Neck exam general surgery: Present: normal inspection, supple, trachea midline. Absent: lymphadenopathy, tenderness - Respiratory Respiratory exam: Present: CTAB. Absent: accessory muscle use, rales, rhonchi, wheezes - Cardiovascular Cardiovascular exam: Present: RRR, +S1, +S2. Absent: bradycardia, diastolic murmur, gallop, rubs, systolic murmur, tachycardia - GI/Abdominal GI/Abdominal exam: Present: normal bowel sounds, soft. Absent: distended, hepatomegaly, tenderness - Extremities Exam Extremities exam: Present: normal inspection, warm, radial pulses palpable and symmetrical. Absent: calf tenderness, cyanotic, pedal edema - Neurological Exam Neurological exam: Present: alert, oriented X3. Absent: facial droop, speech deficit - Skin Skin exam: Present: dry, intact, normal color, warm. Absent: rash Internal Medicine: Result - Labs CBC & Chem 7: 03/06/17 00:42 03/06/17 00:42 Labs: Short CBC 03/06/17 Range/Units 00:42 WBC 5.4 (4.3-11.1) K/mcL Hgb 12.6 L (12.9-16.9) g/dL Hct 38.8 (37.5-50.1) % Plt Count 170 (140-400) K/mcL Neutrophils # 2.9 (1.6-8.9) K/mcL BMP 03/06/17 00:42 Sodium 140 Potassium 4.0 Chloride 107 Carbon Dioxide 26 BUN 18 Creatinine 1.17 Glucose 98 Calcium 8.3 L Cardiac Enzymes 03/05/17 03/06/17 Range/Units 17:07 00:42 Troponin I 0.00 0.03 (0-0.03) ng/mL - ABG Interpretation ABG results: PT/INR, D-dimer PT 14.0 Seconds (9.4-12.1) H 03/06/17 00:42 Consult Discharge Plan - Plan [facility]errals: [facility]Primary Care Provider[facility] -
[2017-03-07 04:36] LABS: Basophils % 0.6 %; Eosinophils # 0.2 K/mcL (0.0-0.6); Immature Granulocytes % 0.3 % (0-4); Lymphocytes # 2.1 K/mcL (0.6-4.6); Lymphocytes % 32.6 %; Mean Corpuscular HGB Conc 33.3 g/dL (31.6-35.5); Mean Corpuscular Hemoglobin 29.9 pg (28.0-33.3); Mean Corpuscular Volume 89.7 fL (83.0-100.0); Mean Platelet Volume 10.5 fL (9.4-12.4); Monocytes # 0.7 K/mcL (0.0-1.3); Monocytes % 11.6 %; Neutrophils # 3.3 K/mcL (1.6-8.9); Platelet Count 178 K/mcL (140-400); Red Blood Count 4.35 M/mcL (4.19-5.50); Red Cell Distribution Width 13.7 % (11.5-14.5); Segmented Neutrophils % 51.9 %
[2017-03-07 04:49] LABS: BUN/Creatinine Ratio 18 (6-26); Blood Urea Nitrogen 24 mg/dL (8-26); Carbon Dioxide 27 mEq/L (19-29); Chloride 105 mEq/L (98-109); Glucose 90 mg/dL (70-99); Osmolality,Calculated 294 (280-300); Potassium 4.2 mEq/L (3.5-4.5); Sodium 140 mEq/L (136-145); eGFR For African Americans > 60 (> 60); eGFR For Non-African Americans 52 (> 60)
[2017-03-07] MEDS: Insulin LISPRO 300 UNITS/3 ML VIAL SQ SCH ×4 (08:09→19:52)
[2017-03-07] MEDS: Metoprolol XL (24 HR) Succ 25 MG TAB.ER.24H PO SCH (08:10)
[2017-03-07] MEDS: *HR* Rivaroxaban 10 MG TABLET PO SCH (08:10)
[2017-03-07] MEDS: Cholecalciferol (D-3) 1,000 UNIT TABLET PO SCH (08:10)
[2017-03-07] MEDS: Isosorbide MONOnitrate (24 HR) 30 MG TAB.ER.24H PO SCH (08:10)
[2017-03-07] MEDS: Niacin (24 HR) 500 MG TAB.ER.24H PO SCH (08:10)
[2017-03-07] MEDS: Aspirin Enteric Coated 81 MG Tablet PO SCH (08:10)
[2017-03-07] MEDS: Pantoprazole 40 MG VIAL IVP SCH (08:10)
[2017-03-07] MEDS: 0.9 % Sodium Chloride 1,000 ML IVC SCH (08:29)
--- NOTE | 2017-03-07 11:54 | Internal Med Progress Note ---
Date of Encounter: 03/07/17 Time of Encounter: 07:50 - Assessment and plan (1) Chest pain Current Visit: Yes Status: Acute Assessment and plan: Patient denies chest pain today. Echocardiogram showed LVEF of 50-55% with normal systolic function, moderate diastolic dysfunction, no significant valvular dysfunction. Patient has no prior echocardiogram or any cardiovascular notes that all to compare. Troponins were negative 3. Patient's A1c is 5.6, cholesterol triglycerides are within normal limits. Stress test in a.m. NPO after midnight and Imdur has been held. Continue rib bender vitals and labs. Qualifiers: Chest pain type: other chest pain Qualified Code(s): R07.89 - Other chest pain; R07.8 - Other chest pain (2) CAD (coronary artery disease) Current Visit: Yes Status: Chronic Assessment and plan: Plan as above. Continue aspirin, statin, Plavix, Imdur, beta huber, and Xarelto. Imdur held for stress tomorrow. Qualifiers: Coronary Disease-Associated Artery/Lesion type: [place] artery [place] vs. transplanted heart: unspecified whether [place] or transplanted heart Associated angina: angina presence unspecified Qualified Code(s): I25.10 - Atherosclerotic heart disease of [place] coronary artery without angina pectoris (3) HTN (hypertension) Current Visit: Yes Status: Chronic Assessment and plan: Chronic. Continue home medications. Well-controlled in inpatient setting. Qualifiers: Hypertension type: essential hypertension Qualified Code(s): I10 - Essential (primary) hypertension (4) HLD (hyperlipidemia) Current Visit: Yes Status: Chronic Assessment and plan: Continue home medications. Qualifiers: Hyperlipidemia type: pure hypercholesterolemia Qualified Code(s): E78.00 - Pure hypercholesterolemia, unspecified; E78.0 - Pure hypercholesterolemia (5) Numbness of left hand Current Visit: Yes Status: Acute Assessment and plan: Patient reports numbness of left hand that is most likely not associated with the chest pain as they started at different times. 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 He is seeing Dr. Ceballos and had his right shoulder and left knee replaced by him. Head CT was negative, strengths are equal bilaterally in arms. He reports that he has had pain in that hand that has awakened him in the past, Phalen's and Tinel's negative. Pulses are equal bilaterally. Recommend outpatient EMG. (6) GERD (gastroesophageal reflux disease) Current Visit: Yes Status: Chronic Assessment and plan: Chronic. Continue home medications. Qualifiers: Esophagitis presence: esophagitis presence not specified Qualified Code(s) : K21.9 - Gastro-esophageal reflux disease without esophagitis (7) DVT prophylaxis Current Visit: Yes Status: Acute Assessment and plan: Patient is on aspirin, Plavix, and Xarelto. - Time Spent With Patient less than 15 minutes - Subjective Interval history: Patient was seen and assessed at bedside at 0750 AM. He denies chest pain since arrival. I spoke with cardiology SUPERVISOR TUBING this a.m. who recommends that pt have stress test. Pt had already received his morning meds prior to decision. He will stay for stress test tomorrow. Pt has been up in room and taken a shower, denies cp with exertion. - Constitutional Vitals: Temp Pulse Resp BP Pulse Ox 97.7 F 63 17 92/65 93 03/07/17 10:58 03/07/17 10:58 03/07/17 10:58 03/07/17 10:58 03/07/17 10:58 General appearance: Present: cooperative, A&O X 3, pleasant, no acute distress, answers questions appropriately - Head Head exam: Present: atraumatic, normal inspection, normocephalic - Eye Eye exam: Present: normal appearance, conjuntiva pink, sclera anicteric - Neck Neck exam general surgery: Present: supple, trachea midline. Absent: lymphadenopathy, tenderness - Respiratory Respiratory exam: Present: CTAB. Absent: accessory muscle use, rales, rhonchi, wheezes - Cardiovascular Cardiovascular exam: Present: RRR, +S1, +S2. Absent: diastolic murmur, gallop, rubs, systolic murmur - GI/Abdominal GI/Abdominal exam: Present: normal bowel sounds, soft, no peritoneal signs. Absent: distended, hepatomegaly, tenderness - Extremities Exam Extremities exam: Present: normal capillary refill, warm, radial pulses palpable and symmetrical. Absent: calf tenderness, cyanotic, pedal edema - Neurological Exam Neurological exam: Present: alert, oriented X3, no focal deficits. Absent: pronater drift, facial droop, speech deficit - Skin Skin exam: Present: dry, intact, normal color, warm. Absent: rash Internal Medicine: Result - Labs CBC & Chem 7: 03/07/17 03:38 03/07/17 03:38 Labs: Short CBC 03/07/17 Range/Units 03:38 WBC 6.3 (4.3-11.1) K/mcL Hgb 13.0 (12.9-16.9) g/dL Hct 39.0 (37.5-50.1) % Plt Count 178 (140-400) K/mcL Neutrophils # 3.3 (1.6-8.9) K/mcL BMP 03/07/17 03:38 Sodium 140 Potassium 4.2 Chloride 105 Carbon Dioxide 27 BUN 24 Creatinine 1.35 H Glucose 90 Calcium 9.0 - ABG Interpretation ABG results: PT/INR, D-dimer PT 14.0 Seconds (9.4-12.1) H 03/06/17 00:42 Consult Discharge Plan - Plan [facility]errals: [facility] Care Provider[facility] -
[2017-03-08] MEDS: 0.9 % Sodium Chloride 1,000 ML IVC SCH (00:57)
[2017-03-08 05:45] LABS: Basophils % 0.5 %; Eosinophils # 0.2 K/mcL (0.0-0.6); Hematocrit 37.5 % (37.5-50.1); Hemoglobin 12.7 g/dL (12.9-16.9); Immature Granulocytes % 0.5 % (0-4); Lymphocytes # 1.8 K/mcL (0.6-4.6); Mean Corpuscular HGB Conc 33.9 g/dL (31.6-35.5); Mean Corpuscular Hemoglobin 29.6 pg (28.0-33.3); Mean Corpuscular Volume 87.4 fL (83.0-100.0); Mean Platelet Volume 10.3 fL (9.4-12.4); Monocytes # 0.8 K/mcL (0.0-1.3); Monocytes % 12.7 %; Neutrophils # 3.5 K/mcL (1.6-8.9); Platelet Count 164 K/mcL (140-400); Red Blood Count 4.29 M/mcL (4.19-5.50); Red Cell Distribution Width 13.7 % (11.5-14.5); Segmented Neutrophils % 55.3 %
[2017-03-08 05:56] LABS: BUN/Creatinine Ratio 25 (6-26); Blood Urea Nitrogen 28 mg/dL (8-26); Calcium 8.5 mg/dL (8.6-10.8); Carbon Dioxide 26 mEq/L (19-29); Chloride 107 mEq/L (98-109); Glucose 89 mg/dL (70-99); Osmolality,Calculated 293 (280-300); Sodium 139 mEq/L (136-145); eGFR For African Americans > 60 (> 60); eGFR For Non-African Americans > 60 (> 60)
[2017-03-08] MEDS ORDERED: Regadenoson 0.4 MG/5 ML SYRINGE IVP ONE (06:25)
[2017-03-08] MEDS: Insulin LISPRO 300 UNITS/3 ML VIAL SQ SCH ×2 (07:28→11:30)
[2017-03-08] MEDS: Isosorbide MONOnitrate (24 HR) 30 MG TAB.ER.24H PO SCH (07:28)
--- NOTE | 2017-03-08 08:16 | Electrocardiograph Report ---
[place] [address] Test Date: 2017-03-05 Pat Name: Pito Lopez Department: 102 Room: 3B23 Gender: M Rod Filler: [facility] : 1945 Requested By: Osiel Marquez Order Number: [id number] Reading MD: Annabel Conley Measurements Intervals [place] Rate: 61 P: 248 ID: [id number] QRS: -55 QRSD: 106 T: 81 QT: 385 QTc: 389 Interpretive Statements ELECTRONIC ATRIAL PACEMAKER ELECTRONIC VENTRICULAR PACEMAKER ABNORMAL RHYTHM ECG Electronically Signed On 03-07-2017 11:11:39 EDT by Annabel Conley
--- NOTE | 2017-03-08 08:29 | Carotid Imaging Report ---
Carotid Duplex Patient Name:Pito Lopez Order Number:[id number] Procedure Date:03/06/2017 Date:4Age:71 yrs Gender:Male Lt BP:114 / 66 mmHg Rt.BP:113 / 65 mmHgHeart Rate: Location:[facility] Room #: 3B23 Tool Hardener:Xavier Pham Referring MD:Mike Zimmerman CNP nuclear fuel enrichment technician:[facility] Reading MD:Jeovany Reynolds MD Primary Indications:Dizziness Risk Factors Yes/No Hypertension Yes Diabetes Yes Hypercholesterolemia Yes Smoker Previous Yes Hx of CAD/PTCA Yes Impressions: The right internal carotid artery has a 60-79% stenosis (upper end of range). The left internal carotid artery has a 40-59% stenosis. Recommendations: Risk factor reduction. Further evaluation recommended if clinically indicated. Follow-up carotid duplex in 6 months. Findings Carotid Duplex: Right: There is nonstenotic plaque in the right distal common carotid artery. There is smooth heterogeneous plaque. There is 60-79% stenosis in the right proximal internal carotid artery. There is smooth homogeneous plaque. There is 60-79% stenosis in the right mid internal carotid artery. There is smooth homogeneous plaque. Left: There is nonstenotic plaque in the left bifurcation. There is smooth heterogeneous plaque. There is nonstenotic plaque in the left proximal internal carotid artery. There is smooth heterogeneous plaque. There is 40-59% stenosis in the left distal internal carotid artery. There is smooth heterogeneous plaque. There is nonstenotic plaque in the left eca. There is irregular heterogeneous plaque. Prior Study: No prior study available for comparison. Carotid Results Right PSV EDV Assessment Proximal CCA 79 16 Normal Mid CCA 77 19 Normal Distal CCA 78 22 Non Stenotic Plaque Bifurcation 67 12 Non Stenotic Plaque Proximal ICA 303 42 60-79% stenosis Mid ICA 186 43 60-79% stenosis Distal ICA 130 38 40-59% stenosis ECA 105 11 Normal Vertebral Artery 78 26 Normal Left PSV EDV Assessment Proximal CCA 105 30 Normal Mid CCA 102 25 Normal Distal CCA 97 23 Non Stenotic Plaque Bifurcation 73 15 Non Stenotic Plaque Proximal ICA 80 16 Non Stenotic Plaque Mid ICA 96 31 Normal Distal ICA 134 37 40-59% stenosis ECA 86 0 Non Stenotic Plaque Vertebral Artery 32 6 Normal Ratio's Right ICA/CCA Ratio: 3.93 ICA/CCA Values: 303/77 Left ICA/CCA Ratio: 1.31 ICA/CCA Values: 134/102 Updated by Jeovany Reynolds MD on 03/08/2017 7:40:59 AM electronically signed on 03/08/2017 7:41:15 AM with status of Final
[2017-03-08 11:15] VITALS: BP 138/72
[2017-03-08] MEDS: Cholecalciferol (D-3) 1,000 UNIT TABLET PO SCH (11:24)
[2017-03-08] MEDS: Aspirin Enteric Coated 81 MG Tablet PO SCH (11:24)
[2017-03-08] MEDS: Niacin (24 HR) 500 MG TAB.ER.24H PO SCH (11:24)
[2017-03-08] MEDS: Metoprolol XL (24 HR) Succ 25 MG TAB.ER.24H PO SCH (11:25)
[2017-03-08] MEDS: *HR* Rivaroxaban 10 MG TABLET PO SCH (11:25)
[2017-03-08] MEDS: Pantoprazole 40 MG VIAL IVP SCH (11:26)
--- NOTE | 2017-03-08 12:24 | Nuclear Medicine Stress Report ---
Regadenoson Nuclear Stress Name: Pito Lopez Date of Study: 03/08/2017 Date: 1945 Ht: 64.0 in Medical Record#: [id number] Age: 71 Wt: 173.0 lb Gender: Male Order #: [id number] Location: [facility] Room: [facility] Supervising Provider: Alicia Rodriguez CNP Reading Physician: Doroteo Rachel DO, FAC, [facility] Ordering Physician: Mary Lazcano CNP Primary Care Physician: [facility] Stress Technologist: Aureliano Aviles, TRANSFORMER MAKER, CPFT Vp Digital Marketing: Bang Wong Indications: Chest Pain Impression: Pharmacologic stress ECG is non-diagnostic for ischemia due to baseline ST-T changes. Chest discomfort reported during the study. Gated EF = 48%. Small sized, mild intensity, fixed basal to mid inferior perfusion defect possibly due to a prior infarct. Perfusion imaging was negative for ischemia. History: Hypertension Hypercholesteremia Prior PCI Stress Test Summary: Stress Test Type: Pharmacologic Regadenoson 0.4mg/5ml given IV Baseline Information: Initial Heart Rate: 65 Blood Pressure: 104/68 Stress Information: Stress Time: 4 min 00 sec Test Terminated Due to (primary): As per protocol Maximum Blood Pressure: 104/62 Maximum Heart Rate: 75 Percent Maximum Heart Rate Achieved: 50 Double Product: 7800 METS Reached: 1 Symptoms: Chest pain Nuclear Summary: SPECT myocardial perfusion imaging using Tc99m Sestamibi given intravenously was performed at rest and following cardiac stress testing. The resting images were obtained following initial dose of 10.0 mCi. Following stress an additional dose of 31.2 mCi was given at peak exercise or 30 seconds post regadenoson infusion. Medication Given: Time Medication Dose Units Route Findings: Stress Note * Resting ECG demonstrated normal sinus rhythm and baseline ST-T changes. * No baseline arrhythmias were noted. * Pharmacologic stress ECG is non-diagnostic for ischemia due to baseline ST and T changes. * Occasional PVCs noted during stress. * Chest discomfort reported during the study. * Normal hemodynamic responses to pharmacologic stress. Study Quality * Study quality is average. Gated EF % * Gated EF = 48%. Left Ventricle * The left ventricle is not dilated. LVEDV = 112 mL. Inferior Perfusion Rest * The basal to mid inferior segments show a mild reduction in perfusion. Inferior Perfusion Stress * The basal to mid inferior segments show a mild reduction in perfusion. TID * No evidence of transient ischemic dilatation. TID ratio = 1.13. Lung Uptake * There is no evidence of increase lung uptake. Updated by Doroteo Rachel DO, FACPrasanna, TRINITY, JOSE on 03/08/2017 12:14:55 PM electronically signed on 03/08/2017 12:17:15 PM with status of Final
--- NOTE | 2017-03-08 13:47 | Discharge Summary ---
Date of Encounter: 03/08/17 Time of Encounter: 13:00 - Discharge Diagnosis (1) Chest pain Priority: Primary Status: Acute Qualifiers: Chest pain type: other chest pain Qualified Code(s): R07.89 - Other chest pain; R07.8 - Other chest pain (2) CAD (coronary artery disease) Priority: Secondary Status: Chronic Qualifiers: Coronary Disease-Associated Artery/Lesion type: [place] artery [place] vs. transplanted heart: unspecified whether [place] or transplanted heart Associated angina: angina presence unspecified Qualified Code(s): I25.10 - Atherosclerotic heart disease of [place] coronary artery without angina pectoris (3) GERD (gastroesophageal reflux disease) Priority: Secondary Status: Chronic Qualifiers: Esophagitis presence: esophagitis presence not specified Qualified Code(s) : K21.9 - Gastro-esophageal reflux disease without esophagitis (4) HLD (hyperlipidemia) Priority: Secondary Status: Chronic Qualifiers: Hyperlipidemia type: pure hypercholesterolemia Qualified Code(s): E78.00 - Pure hypercholesterolemia, unspecified; E78.0 - Pure hypercholesterolemia (5) HTN (hypertension) Priority: Secondary Status: Chronic Qualifiers: Hypertension type: essential hypertension Qualified Code(s): I10 - Essential (primary) hypertension (6) DVT prophylaxis Priority: Secondary Status: Acute - Discharge Medications Prescriptions: Isosorbide MONOnitrate (24 HR) [Imdur] 60 mg PO DAILY #30 tab.er.24h Pantoprazole Sodium 40 mg PO DAILY #30 tablet.dr Home Medications: Clopidogrel [Plavix] 75 mg PO DAILY 11/17/15 [History] Lisinopril [Zestril] 2.5 mg PO DAILY 11/17/15 [History] Niacin [Niacor] 500 mg PO DAILY 11/17/15 [History] [place]-3/Dha/Epa/Fish Oil [Fish Oil 1,000 mg Softgel] 1,000 mg PO DAILY 11/17/15 [History] Atorvastatin Calcium [Lipitor] 20 mg PO HS 03/05/17 [History] Cholecalciferol (D-3) [Vitamin D] 1,000 unit PO DAILY 03/05/17 [History] Metoprolol XL (24 HR) Succ [Toprol Xl] 25 mg PO DAILY 03/05/17 [History] Rivaroxaban [Xarelto] 20 mg PO DAILY 03/05/17 [History] Terazosin HCl 2 mg PO HS 03/05/17 [History] Isosorbide MONOnitrate (24 HR) [Imdur] 60 mg PO DAILY #30 tab.er.24h 03/08/17 [ Rx] Pantoprazole Sodium 40 mg PO DAILY #30 tablet. 03/08/17 [Rx] Allergies/Adverse Reactions: 3 Allergy/AdvReac Type Severity Reaction Status Date / Time No Known Allergies Allergy Verified 11/17/15 06:46 Procedures/tests Complete & Pending: Procedures Performed prior 72 hours Category Date Time Status NM lynn perf SPECT multi [NM] Routine Exams 03/08/17 08:00 Taken SP pharm nuclear stress Routine Y 03/08/17 07:35 Completed Date of admission: 03/05/17 14:47 Primary care physician: PCP SHANNAN Discharging clinician: Ortiz Keyes Anticipated date of discharge: 03/08/17 - Patient Status Disposition: Home, Self-Care Condition: Good Functional capacity at discharge: independent ambulation Overall status at discharge: patient is progressing back to baseline - Discharge Instructions Instructions: Chronic Hypertension (DC) Follow Up With: Sukh Lin DO [Partnered Physician] - 03/15/17 12:45 pm (Left hand numbness; ? carpal tunnel; EMG ; in 1-2 weeks) [facility] Care Provider[facility] - (in 1-2 weeks) - Diet and Activity Activity: increase activity as tolerated Diet: diabetic diet, low fat, low cholesterol, low salt diet Hospital course: Mr. Lopez is a 71 year old male patient who was hospitalized here with complaints of chest pain and numbness of his left hand associated with it. He has a history of coronary artery disease, hypertension, hyperlipidemia and permanent pacemaker. His case was discussed with cardiology and further recommendations he underwent cardiac stress test and echocardiogram. Echocardiogram showed an EF of 50-55% with normal systolic function. Stress test done today was negative for ischemia. Patient no longer has chest pain at this time and is stable to be discharged home. She will be discharged on increased dosage of Imdur and also on a short course of PPI for possible gastric causes of his chest pain. His left hand numbness could be related to carpal tunnel syndrome or neuropathy and I will refer him to neurology for EMG study and further management and evaluation. - Time Spent with Patient Total time spent providing and/or coordinating discharge services: Less than 30 minutes (25 min) - Constitutional Vitals: Temp Pulse Resp BP Pulse Ox 98.1 F 65 17 138/72 95 03/08/17 11:11 03/08/17 11:11 03/08/17 11:11 03/08/17 11:11 03/08/17 11:11 General appearance: Present: cooperative, A&O X 3, pleasant, no acute distress, answers questions appropriately - Neck Neck exam general surgery: Present: supple, trachea midline. Absent: lymphadenopathy - Respiratory Respiratory exam: Present: CTAB. Absent: accessory muscle use, rales, rhonchi, wheezes - Cardiovascular Cardiovascular exam: Present: RRR, +S1, +S2. Absent: diastolic murmur, gallop, rubs, systolic murmur - GI/Abdominal GI/Abdominal exam: Present: normal bowel sounds, soft, no peritoneal signs. Absent: distended, tenderness - Extremities Exam Extremities exam: Present: warm, radial pulses palpable and symmetrical. Absent : calf tenderness, cyanotic, pedal edema - Neurological Exam Neurological exam: Present: CN II-XII intact, oriented X3, no focal deficits, strengths equal and symetr throughout. Absent: facial droop, speech deficit
== END 2017-03-08 15:09 | disposition home or self-care (01) ==
LOC: 3BNU 11:07 → EMEROO 11:07 → SUATTDRO 14:47 → 3BNU 15:13
PROVIDERS: ADMIT Nurse Practitioner Family; ATTEND Internal Medicine

== ENCOUNTER 2017-08-27 20:07 | Inpatient (IN) ==
[2017-08-27 20:38] LABS: Basophils % 0.4 %; Eosinophils # 0.1 K/mcL (0.0-0.6); Hematocrit 39.5 % (37.5-50.1); Hemoglobin 13.4 g/dL (12.9-16.9); Immature Granulocytes % 0.1 % (0-4); Lymphocytes # 1.3 K/mcL (0.6-4.6); Lymphocytes % 18.1 %; Mean Corpuscular HGB Conc 33.9 g/dL (31.6-35.5); Mean Corpuscular Hemoglobin 29.6 pg (28.0-33.3); Mean Corpuscular Volume 87.4 fL (83.0-100.0); Mean Platelet Volume 9.9 fL (9.4-12.4); Monocytes # 0.7 K/mcL (0.0-1.3); Monocytes % 9.2 %; Neutrophils # 5.1 K/mcL (1.6-8.9); Platelet Count 203 K/mcL (140-400); Red Blood Count 4.52 M/mcL (4.19-5.50); Red Cell Distribution Width 13.6 % (11.5-14.5); Segmented Neutrophils % 71.2 %
--- NOTE | 2017-08-27 20:46 | Emergency Department Note ---
Disposition Clinical Impression: TANO (acute kidney injury) Hypotension Qualifiers: Hypotension type: unspecified hypotension type Qualified Code(s): I95.9 - Hypotension, unspecified Disposition: Admitted As Inpatient Condition: Fair Time of Disposition: 23:50 Abdominal Pain HPI - General Stated Complaint: Hypotension Time Seen by Provider: 08/27/17 20:13 Source: patient, family Mode of arrival: EMS Limitations: altered mental status Nursing Notes Reviewed: Yes Vital Signs Reviewed: Yes - History of Present Illness HPI Narrative: Patient is a 72-year-old male who presents to [facility] ED with a chief complaint of abdominal pain and altered mental status. states that he was seen here a few months ago and diagnosed with aortic dissections. He was sent up to [facility] at that time and they have been watching it to make sure it does not worsen. He has been on medications for blood pressure control. states he has been complaining of abdominal pain for the last several days. However today, he was doing some woodwork and then came back and she noted he seemed to be acting a little differently. Denies any nausea, vomiting, fever or chills. No problems with breathing or chest pain. Patient states he feels fatigued at this time. States he has felt some numbness and tingling to his upper extremities earlier but this has since resolved. Pt Subjective Complaint: abdominal pain Onset (ago): day(s) Consistency: constant Location: diffuse Pain Severity: moderate Quality: aching Radiation: none Migration to: no migration Improves with: nothing Worsens with: nothing Context: history of similar episodes Associated symptoms: Denies: nausea, vomiting, fever, chills, constipation Treatments prior to arrival: none - Related Data Home Medications Medication Instructions Recorded Confirmed Clopidogrel [Plavix] 75 mg PO DAILY 11/17/15 06/03/17 Lisinopril [Zestril] 2.5 mg PO DAILY 11/17/15 06/03/17 Atorvastatin Calcium [Lipitor] 20 mg PO HS 03/05/17 06/03/17 Cholecalciferol (D-3) [Vitamin D] 1,000 unit PO BID 03/05/17 06/03/17 Metoprolol XL (24 HR) Succ [Toprol 25 mg PO DAILY 03/05/17 06/03/17 Xl] Rivaroxaban [Xarelto] 20 mg PO DAILY 03/05/17 06/03/17 Terazosin HCl 2 mg PO HS 03/05/17 06/03/17 Amoxicillin [Amoxil] 500 mg PO Q8HR 06/03/17 06/03/17 HYDROcodone/Acet 10/325 mg [[place] 1 tab PO TID PRN 06/03/17 06/03/17 10-325 mg] Previous Rx's Medication Instructions Recorded Isosorbide MONOnitrate (24 HR) 60 mg PO DAILY #30 tab.er.24h 03/08/17 [Imdur] Allergies Allergy/AdvReac Type Severity Reaction Status Date / Time No Known Allergies Allergy Verified 11/17/15 06:46 All systems ED: reviewed and negative except as stated. Abdominal Pain PMH - Past Medical History Medical history: Reports: coronary artery disease, GERD, hyperlipidemia, hypertension, myocardial infarction, other Male Surgical History: Reports: angioplasty/stent, knee replacement Psychiatric history: Reports: no psych history - Social History Smoking status: Former smoker Alcohol use: Reports: none Drug use: Reports: none Physical Exam - General Limitations: no limitations General appearance: alert, in no apparent distress - Head Head exam: atraumatic, normocephalic, normal inspection - Eye Eye exam: Present: normal appearance, EOMI - ENT ENT exam: normal exam, normal oropharynx, mucous membranes moist - Neck Neck exam: Present: normal inspection, full ROM, trachea midline - Chest Chest inspection: Present: normal inspection, symmetric chest wall rise - Respiratory Respiratory exam: Present: normal lung sounds bilaterally - Cardiovascular Cardiovascular exam: Present: regular rate, normal rhythm, normal heart sounds - Abdominal Exam Abdominal exam: Present: soft, tenderness, normal bowel sounds. Absent: distention, guarding, rebound, rigidity - Extremities Exam Extremities exam: Present: normal inspection, full ROM. Absent: tenderness, pedal edema - Expanded Lower Extremity Exam Neurovascular/Tendon exam: Present: normal capillary refill. Absent: pulse deficit, motor deficit, sensory deficit - Back Exam Back exam: Present: normal inspection, full ROM. Absent: tenderness - Neurological Exam Neurological exam: Present: alert, oriented X3 - Psychiatric Psychiatric exam: Present: normal affect, normal mood - Skin Skin exam: Present: warm, dry, intact, normal color Course Course Narrative: Patient seen and examined. Per , patient has not been acting himself. For me on exam, he is alert and oriented 4. States he is just feeling fatigued at this time. Not experiencing any abdominal pain or numbness or tingling to the arms. With his history of aortic dissections, we will get a formal pain workup as well as CTA of the chest and abdomen and pelvis. - Reevaluation(s) Reevaluation #1: Lab work shows worsened renal function with creatinine of 1.87. GFR 36. I discussed with radiologist Dr. Forrester who states they are not able to visualize a dissection without the contrast. I discussed the possibility of worsening the patient's renal function with the patient and his . However due to the need to image his abdomen, they will go ahead and proceed with the imaging. CTA of the chest abdomen and pelvis was performed. This showed persistence of the infrarenal abdominal aortic aneurysm as well as dissection. No interval worsening. As discussed these results with the patient's cardiothoracic surgeon Dr. Clay at [facility] who states that he does not believe patient's symptoms are due to his aneurysm or dissection. Patient's blood pressure has improved to a systolic of 104. We will admit him here for continued monitoring of his hypotension and acute kidney injury. I discussed with hospitalist Dr. Tuttle who has accepted patient for admission. Time: 23:49 Vital Signs Temperature 97.8 F 08/27/17 20:15 Pulse Rate 73 08/27/17 20:15 Respiratory Rate 16 08/27/17 20:15 Blood Pressure 93/65 08/27/17 20:15 O2 Sat by Pulse Oximetry 94 08/27/17 20:15 Temperature 97.9 F 08/27/17 22:11 Pulse Rate 73 08/27/17 23:25 Respiratory Rate 18 08/27/17 23:25 Blood Pressure 111/73 08/27/17 23:25 O2 Sat by Pulse Oximetry 95 08/27/17 23:25 Oxygen Delivery Oxygen Delivery Room Air Abdominal Pain - Medical Records Medical records reviewed: Yes I reviewed the patient's medical records. - Lab Data Lab results reviewed: Yes I reviewed the patient's lab results. Result diagrams: 08/27/17 20:25 08/27/17 20:25 Lab Results 08/27/17 08/27/17 08/27/17 Range/Units 20:25 20:25 20:25 WBC 7.2 (4.3-11.1) K/mcL RBC 4.52 (4.19-5.50) M/mcL Hgb 13.4 (12.9-16.9) g/dL Hct 39.5 (37.5-50.1) % MCV 87.4 (83.0-100.0) fL MCH 29.6 (28.0-33.3) pg MCHC 33.9 (31.6-35.5) g/dL RDW 13.6 (11.5-14.5) % Plt Count 203 (140-400) K/mcL MPV 9.9 (9.4-12.4) fL Immature Gran % 0.1 (0-4) % Seg Neutrophils % 71.2 % Lymphocytes % 18.1 % Monocytes % 9.2 % Eosinophils % 1.0 % Basophils % 0.4 % Neutrophils # 5.1 (1.6-8.9) K/mcL Lymphocytes # 1.3 (0.6-4.6) K/mcL Monocytes # 0.7 (0.0-1.3) K/mcL Eosinophils # 0.1 (0.0-0.6) K/mcL Basophils # 0.0 (0.0-0.2) K/mcL Sodium 137 (136-145) mEq/L Potassium 4.3 (3.5-5.1) mEq/L Chloride 104 (98-107) mEq/L Carbon Dioxide 25 (23-29) mEq/L BUN 22 (8-23) mg/dL Creatinine 1.87 H (0.70-1.30) mg/dL Est GFR ( Amer) 43 L (> 60) Est GFR (Non-Af Amer) 36 L (> 60) BUN/Creatinine Ratio 12 (6-26) Glucose 144 H (70-105) mg/dL Calculated Osmolality 290 (280-300) Lactic Acid (0.5-2.2) mmol/L Calcium 9.1 (8.6-10.3) mg/dL Total Bilirubin 0.7 (0.3-1.0) mg/dL Direct Bilirubin 0.2 (0.0-0.2) mg/dL Indirect Bilirubin 0.5 (0.0-1.2) mg/dL AST 15 (13-39) Units/L ALT 11 (7-52) Units/L Alkaline Phosphatase 94 (34-104) Units/L Troponin I < 0.03 (< 0.04) ng/mL Serum Total Protein 6.5 (6.4-8.9) g/dL Albumin 4.0 (3.5-5.7) g/dL Globulin 2.5 (2.4-3.5) g/dL Albumin/Globulin Ratio 1.6 (1.1-2.2) Lipase 13 (11-82) Units/L Ur Specimen Adequacy Urine Color (Yellow) Urine Clarity (Clear) Urine pH (5.0-8.0) pH Units Ur Specific [place] (1.010-1.025) Urine Protein (Neg-Trace) mg/dL Urine Glucose (UA) (Normal) mg/dL Urine Ketones (Negative) mg/dL Urine Blood (Negative) Urine Nitrite (Negative) Urine Bilirubin (Negative) Urine Urobilinogen (Normal) mg/dL Ur Leukocyte Esterase (Negative) Urine Microscopic RBC (0-3) per hpf Urine Microscopic WBC (0-3) per hpf Ur Squamous Epith Cells (None-Few) per lpf Calcium Oxalate Crystal Urine Bacteria (None-Few) per hpf Hyaline Casts (None-Few) per lpf Urine Mucus (Few) Ur Culture Indicated? (NO) 08/27/17 08/27/17 Range/Units 20:43 20:44 WBC (4.3-11.1) K/mcL RBC (4.19-5.50) M/mcL Hgb (12.9-16.9) g/dL Hct (37.5-50.1) % MCV (83.0-100.0) fL MCH (28.0-33.3) pg MCHC (31.6-35.5) g/dL RDW (11.5-14.5) % Plt Count (140-400) K/mcL MPV (9.4-12.4) fL Immature Gran % (0-4) % Seg Neutrophils % % Lymphocytes % % Monocytes % % Eosinophils % % Basophils % % Neutrophils # (1.6-8.9) K/mcL Lymphocytes # (0.6-4.6) K/mcL Monocytes # (0.0-1.3) K/mcL Eosinophils # (0.0-0.6) K/mcL Basophils # (0.0-0.2) K/mcL Sodium (136-145) mEq/L Potassium (3.5-5.1) mEq/L Chloride (98-107) mEq/L Carbon Dioxide (23-29) mEq/L BUN (8-23) mg/dL Creatinine (0.70-1.30) mg/dL Est GFR ( Amer) (> 60) Est GFR (Non-Af Amer) (> 60) BUN/Creatinine Ratio (6-26) Glucose (70-105) mg/dL Calculated Osmolality (280-300) Lactic Acid 1.4 (0.5-2.2) mmol/L Calcium (8.6-10.3) mg/dL Total Bilirubin (0.3-1.0) mg/dL Direct Bilirubin (0.0-0.2) mg/dL Indirect Bilirubin (0.0-1.2) mg/dL AST (13-39) Units/L ALT (7-52) Units/L Alkaline Phosphatase (34-104) Units/L Troponin I (< 0.04) ng/mL Serum Total Protein (6.4-8.9) g/dL Albumin (3.5-5.7) g/dL Globulin (2.4-3.5) g/dL Albumin/Globulin Ratio (1.1-2.2) Lipase (11-82) Units/L Ur Specimen Adequacy See below A Urine Color Yellow (Yellow) Urine Clarity Slightly Hazy (Clear) Urine pH 6.0 (5.0-8.0) pH Units Ur Specific [place] 1.021 (1.010-1.025) Urine Protein 30 H (Neg-Trace) mg/dL Urine Glucose (UA) Normal (Normal) mg/dL Urine Ketones Trace H (Negative) mg/dL Urine Blood Negative (Negative) Urine Nitrite Negative (Negative) Urine Bilirubin Small H (Negative) Urine Urobilinogen Normal (Normal) mg/dL Ur Leukocyte Esterase Trace H (Negative) Urine Microscopic RBC 0-3 (0-3) per hpf Urine Microscopic WBC 0-3 (0-3) per hpf Ur Squamous Epith Cells Moderate H (None-Few) per lpf Calcium Oxalate Crystal Present Urine Bacteria None Seen (None-Few) per hpf Hyaline Casts Few (None-Few) per lpf Urine Mucus Few (Few) Ur Culture Indicated? YES A (NO) - Radiology Data Radiology results reviewed: Yes I reviewed the patient's radiology results. Abdomen/Pelvis CTA 08/27/17 20:23 IMPRESSION: Infrarenal aortic dissection and aneurysm not substantially changed from 06/03/2017. 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 No evidence of acute intramural hematoma. Bilateral pulmonary nodules measuring less than 6 mm, unchanged from 2017. RECOMMENDATIONS: Fleischner Society guidelines for follow-up and management of incidentally detected pulmonary nodules: Multiple Solid Nodules: Nodule size less than 6 mm In a low-risk patient, no routine follow-up. In a high-risk patient, optional CT at 12 months. - Low risk patients include individuals with minimal or absent history of smoking and other known risk factors. - High risk patients include individuals with a history or smoking or known risk factors. Radiology 2017 http://pubs.rsna.org/doi/full/10.1148/[email or web address] D/ / Raymundo Kirkpatrick MD / Raymundo Kirkpatrick MD Interpreting Provider: Raymundo Kirkpatrick MD Chest CTA 08/27/17 20:27 IMPRESSION: Infrarenal aortic dissection and aneurysm not substantially changed from 06/03/2017. 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 No evidence of acute intramural hematoma. Bilateral pulmonary nodules measuring less than 6 mm, unchanged from 2017. RECOMMENDATIONS: Fleischner Society guidelines for follow-up and management of incidentally detected pulmonary nodules: Multiple Solid Nodules: Nodule size less than 6 mm In a low-risk patient, no routine follow-up. In a high-risk patient, optional CT at 12 months. - Low risk patients include individuals with minimal or absent history of smoking and other known risk factors. - High risk patients include individuals with a history or smoking or known risk factors. Radiology 2017 http://pubs.rsna.org/doi/full/10.1148/[email or web address] D/ / Raymundo Kirkpatrick MD / Raymundo Kirkpatrick MD Interpreting Provider: Raymundo Kirkpatrick MD - EKG Data EKG attestation: Yes I reviewed and interpreted this EKG. EKG results narrative: EKG done at 2021 shows paced rhythm with a rate of [address] elevation or depression. Left axis deviation.
[2017-08-27 20:55] LABS: Albumin/Globulin Ratio 1.6 (1.1-2.2); Bilirubin,Direct 0.2 mg/dL (0.0-0.2); Bilirubin,Indirect 0.5 mg/dL (0.0-1.2); Bilirubin,Total 0.7 mg/dL (0.3-1.0); Calcium 9.1 mg/dL (8.6-10.3); Globulin 2.5 g/dL (2.4-3.5); Potassium 4.3 mEq/L (3.5-5.1); Total Protein 6.5 g/dL (6.4-8.9)
[2017-08-27] MEDS ORDERED: 0.9 % Sodium Chloride 1,000 ML ONE (21:04)
--- NOTE | 2017-08-27 21:11 | Emergency Department Note ---
START Narrative - START START: I examined this patient and my medical decision-making was reviewed with the Resident Physician. I agree with the documented findings, disposition and treatment plan as described except to the extent set forth below. 72 year old male with known history of aortic dissection presntes to the eD hypotensive and with abdominal pain and worsening crn. No bloody stools or nausea/vomitting. Last month he was transferred to [facility] for therapy and obs and they did not intervene surgically. We will repeat CTAs and then consult with [facility]
[2017-08-27 21:33] LABS: Bilirubin,Urine Small (Negative); Blood,Urine Negative (Negative); Glucose,Urine (UA) Normal (Normal); Ketones,Urine Trace mg/dL (Negative); Leukocyte Esterase,Urine Trace (Negative); Nitrite,Urine Negative (Negative); Protein,Urine 30 mg/dL (Neg-Trace); Specific Gravity,Urine 1.021 (1.010-1.025); Urobilinogen,Urine Normal (Normal)
[2017-08-27 21:35] LABS: Bacteria,Urine None Seen per hpf (None-Few); Hyaline Casts,Urine Few per lpf (None-Few); Squamous Epithelial Cell,Urine Moderate per lpf (None-Few); WBC,Urine 0-3 per hpf (0-3)
[2017-08-27 21:36] LABS: Clarity,Urine Slightly Hazy (Clear); Color,Urine Yellow (Yellow)
[2017-08-27 21:53] LABS: Calcium Oxalate Crystals,Urine Present; Mucus,Urine Few (Few); RBC,Urine 0-3 per hpf (0-3)
--- NOTE | 2017-08-28 00:02 | Internal Med History&Physical ---
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 likely associated with profound hypotension Watch for ATN Check Urine Na, Urine Cr Check renal U/S in am Patient received a dye load with the CTA-C/A/P which may worsen renal function Hold all nephrotoxic medications Hold [place] Serial BMP to evaluate renal functions Monitor urine output IVFs Code(s): N17.9 - Acute kidney failure, unspecified (2) Hypotension Current visit: Yes Status: Acute Hypotension likely medication induced On multiple ant-HTN meds to strickly control BP with know infrarenal aortic, 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 No signs of sepsis to explain hypotension Cautiously hold one anti-HTN medication at a time to titrate BP upward but below dangerous level with known dissection Dissection appears stable on imaging Qualifiers: Hypotension type: hypotension due to drug Qualified Code(s): I95.2 - Hypotension due to drugs (3) Paroxysmal atrial fibrillation Current visit: No Status: Chronic Continue BB Rate controlled With known dissection keep pulse pressure as low as possible Continue Xarelto Code(s): I48.0 - Paroxysmal atrial fibrillation (4) CAD (coronary artery disease) Current visit: No Status: Chronic Continue Plavix, BB and statin No chest pain ECG does not show ischemic changes Initial troponin wnl Trend troponins Telemetry Qualifiers: Coronary Disease-Associated Artery/Lesion type: [place] artery [place] vs. transplanted heart: unspecified whether [place] or transplanted heart Associated angina: angina presence unspecified Qualified Code(s): I25.10 - Atherosclerotic heart disease of [place] coronary artery without angina pectoris Internal Medicine - H&P: HPI Chief complaint: Low BP and Decrease urine output Admitted From: Emergency Dept Plans for Post Hospital Care: Home History of present illness: The patient is a 72-year-old man who presents in the ED c/o mild abdominal pain abdominal pain and decreased urinary output for two days. His BP taken at home by his was reportedly 60's/40's. 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 He takes several anti-HTN medications to control his BP and is foloowed by a CTS at [facility] in [place]. Because of his abdominal pain a CTA-Chest/Abd/Pelvis was done in the ED but failed to show any significant change in his known dissections. He also had some numbness and tingling to his upper extremities earlier which has resolved. He was given a fluid bolus and his BP is now 100-110's systolic. He's otherwise hemodynamically stable now and mentating appropriately with no signs of infection. Past Med Surg Social Fam HX - Past Medical History Medical history: coronary artery disease, GERD, hyperlipidemia, hypertension, myocardial infarction, other Psychiatric history: no psych history - Past Surgical History Surgical History: pacemaker/AICD - Social History Smoking Status: Former smoker Smokeless Tobacco Status: No Alcohol use: none Drug use: none - Family History Father Family Member Ethnicity: Non- Living Status: Mother Family Member Ethnicity: Non- Living Status: Hx Family Cardiac Disorders: Yes (SC, HLD, HTN, HD) Hx Family Endocrine Disorder: Yes (DM) Brother Family Member Ethnicity: Non- Living Status: Hx Family Cardiac Disorders: Yes (HD) Hx Family Cancer: Yes (Leukemia) Hx Family Endocrine Disorder: Yes (DM) Sister Family Member Ethnicity: Non- Living Status: Hx Family Cardiac Disorders: Yes (HD) Hx Family Cancer: Yes (Unknown) Hx Family Endocrine Disorder: Yes (DM) Internal Medicine - H&P: Meds Clopidogrel [Plavix] 75 mg PO DAILY 11/17/15 [History] Lisinopril [Zestril] 2.5 mg PO DAILY 11/17/15 [History] Atorvastatin Calcium [Lipitor] 20 mg PO HS 03/05/17 [History] Cholecalciferol (D-3) [Vitamin D] 1,000 unit PO BID 03/05/17 [History] Metoprolol XL (24 HR) Succ [Toprol Xl] 25 mg PO DAILY 03/05/17 [History] Rivaroxaban [Xarelto] 20 mg PO DAILY 03/05/17 [History] Terazosin HCl 2 mg PO HS 03/05/17 [History] Isosorbide MONOnitrate (24 HR) [Imdur] 60 mg PO DAILY #30 tab.er.24h 03/08/17 [ Rx] Amoxicillin [Amoxil] 500 mg PO Q8HR 06/03/17 [History] HYDROcodone/Acet 10/325 mg [[place] 10-325 mg] 1 tab PO TID PRN 06/03/17 [History] 3 Allergy/AdvReac Type Severity Reaction Status Date / Time No Known Allergies Allergy Verified 11/17/15 06:46 All Systems PM: A 10-system review of systems was performed and is negative for pertinent findings except as documented above in the HPI. - EENT Eyes: no blurry vision, no change in vision, no diplopia, no pain Nose, mouth and throat: no epistaxis, no mouth lesions, no tongue swelling - Cardiovascular Cardiovascular ROS IM: no claudication, no diaphoresis, no dyspnea, no lightheadedness, no palpitations, no syncope - Respiratory Respiratory: no cough, no dyspnea, no hemoptysis, no stridor - Gastrointestinal Gastrointestinal: abdominal pain, constipation, no diarrhea, no dyspepsia, no hematemesis, no hematochezia, no melena, no vomiting - Genitourinary Genitourinary ROS male: flank pain, no dysuria, no hematuria - Musculoskeletal Musculoskeletal ROS IM: back pain - Neurological Neurological ROS: no abnormal hearing, no abnormal speech, no confusion, no focal weakness, no loss of vision, no restless legs, no tingling, no weakness - Psychiatric Psychiatric: no anxiety, no depression, no hallucinations - Allergic/Immunologic Allergic/Immunologic: no tongue swelling, no uticaria, no wheezing - Constitutional Vitals: Temp Pulse Resp BP Pulse Ox 97.9 F 73 18 111/73 95 08/27/17 22:11 08/27/17 23:25 08/27/17 23:25 08/27/17 23:25 08/27/17 23:25 General appearance: Present: A&O X 3, pleasant, no acute distress, answers questions appropriately - Head Head exam: Present: atraumatic, normocephalic - Eye Eye exam: Present: EOMI, PERRL, conjuntiva pink, sclera anicteric Pupils: Present: PERRL - ENT ENT exam: Present: normal oropharynx - Neck Neck exam general surgery: Present: supple, trachea midline. Absent: lymphadenopathy - Respiratory Respiratory exam: Present: CTAB. Absent: accessory muscle use, rales, rhonchi, wheezes - Cardiovascular Cardiovascular exam: Present: RRR, +S1, +S2. Absent: diastolic murmur, gallop, rubs, systolic murmur - GI/Abdominal GI/Abdominal exam: Present: normal bowel sounds, soft, no peritoneal signs. Absent: diminished bowel sounds, distended, guarding, pulsatile mass, tenderness - Extremities Exam Extremities exam: Present: warm, radial pulses palpable and symmetrical. Absent : calf tenderness, cyanotic, pedal edema - Neurological Exam Neurological exam: Present: CN II-XII intact, oriented X3, no focal deficits. Absent: pronater drift, facial droop, speech deficit - Psychiatric Psychiatric exam: Present: normal affect, normal mood. Absent: agitated, anxious, depressed, homicidal ideation, suicidal ideation - Skin Skin exam: Present: dry, intact, warm Internal Med - H&P Results - Labs CBC & Chem 7: 08/27/17 20:25 08/27/17 20:25 Labs: Short CBC 08/27/17 Range/Units 20:25 WBC 7.2 (4.3-11.1) K/mcL Hgb 13.4 (12.9-16.9) g/dL Hct 39.5 (37.5-50.1) % Plt Count 203 (140-400) K/mcL Neutrophils # 5.1 (1.6-8.9) K/mcL BMP 08/27/17 20:25 Sodium 137 Potassium 4.3 Chloride 104 Carbon Dioxide 25 BUN 22 Creatinine 1.87 H Glucose 144 H Calcium 9.1 Cardiac Enzymes 08/27/17 Range/Units 20:25 Troponin I < 0.03 (< 0.04) ng/mL Liver Function 08/27/17 Range/Units 20:25 Total Bilirubin 0.7 (0.3-1.0) mg/dL Direct Bilirubin 0.2 (0.0-0.2) mg/dL AST 15 (13-39) Units/L ALT 11 (7-52) Units/L Alkaline Phosphatase 94 (34-104) Units/L Albumin 4.0 (3.5-5.7) g/dL Urine 08/27/17 Range/Units 20:44 Urine Color Yellow (Yellow) Urine Clarity Slightly Hazy (Clear) Urine pH 6.0 (5.0-8.0) pH Units Ur Specific [place] 1.021 (1.010-1.025) Urine Protein 30 H (Neg-Trace) mg/dL Urine Glucose (UA) Normal (Normal) mg/dL - Impressions ITS Impressions Abdomen/Pelvis CTA 08/27/17 20:23 IMPRESSION: Infrarenal aortic dissection and aneurysm not substantially changed from 06/03/2017. 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 No evidence of acute intramural hematoma. Bilateral pulmonary nodules measuring less than 6 mm, unchanged from 2017. RECOMMENDATIONS: Fleischner Society guidelines for follow-up and management of incidentally detected pulmonary nodules: Multiple Solid Nodules: Nodule size less than 6 mm In a low-risk patient, no routine follow-up. In a high-risk patient, optional CT at 12 months. - Low risk patients include individuals with minimal or absent history of smoking and other known risk factors. - High risk patients include individuals with a history or smoking or known risk factors. Radiology 2017 http://pubs.rsna.org/doi/full/10.1148/[email or web address] D/ / Raymundo Kirkpatrick MD / Raymundo Kirkpatrick MD Interpreting Provider: Raymundo Kirkpatrick MD Chest CTA 08/27/17 20:27 IMPRESSION: Infrarenal aortic dissection and aneurysm not substantially changed from 06/03/2017. 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 No evidence of acute intramural hematoma. Bilateral pulmonary nodules measuring less than 6 mm, unchanged from 2017. RECOMMENDATIONS: Fleischner Society guidelines for follow-up and management of incidentally detected pulmonary nodules: Multiple Solid Nodules: Nodule size less than 6 mm In a low-risk patient, no routine follow-up. In a high-risk patient, optional CT at 12 months. - Low risk patients include individuals with minimal or absent history of smoking and other known risk factors. - High risk patients include individuals with a history or smoking or known risk factors. Radiology 2017 http://pubs.rsna.org/doi/full/10.1148/[email or web address] D/ / Raymundo Kirkpatrick MD / Raymundo Kirkpatrick MD Interpreting Provider: Raymundo Kirkpatrick MD
[2017-08-28] MEDS: 0.9 % Sodium Chloride 1,000 ML IVC SCH ×2 (01:45→15:54)
[2017-08-28] MEDS ORDERED: *HR* HYDROcodone/Acet 10/325 mg TABLET PO PRN (02:06)
[2017-08-28 05:17] LABS: Sodium, Urine 137.7 mEq/L
[2017-08-28 08:56] LABS: Basophils % 0.4 %; Eosinophils # 0.2 K/mcL (0.0-0.6); Eosinophils % 4.5 %; Hemoglobin 12.4 g/dL (12.9-16.9); Immature Granulocytes % 0.4 % (0-4); Lymphocytes # 1.7 K/mcL (0.6-4.6); Lymphocytes % 33.5 %; Mean Corpuscular HGB Conc 33.5 g/dL (31.6-35.5); Mean Corpuscular Hemoglobin 29.2 pg (28.0-33.3); Mean Corpuscular Volume 87.3 fL (83.0-100.0); Monocytes # 0.7 K/mcL (0.0-1.3); Monocytes % 13.3 %; Neutrophils # 2.4 K/mcL (1.6-8.9); Platelet Count 167 K/mcL (140-400); Red Blood Count 4.24 M/mcL (4.19-5.50); Red Cell Distribution Width 13.8 % (11.5-14.5); Segmented Neutrophils % 47.9 %
[2017-08-28 09:22] LABS: BUN/Creatinine Ratio 17 (6-26); Blood Urea Nitrogen 22 mg/dL (8-23); Calcium 8.4 mg/dL (8.6-10.3); Carbon Dioxide 26 mEq/L (23-29); Chloride 106 mEq/L (98-107); Glucose 87 mg/dL (70-105); Osmolality,Calculated 285 (280-300); Potassium 3.8 mEq/L (3.5-5.1); Sodium 136 mEq/L (136-145); eGFR For Non-African Americans 53 (> 60)
[2017-08-28] MEDS: Cholecalciferol (D-3) 1,000 UNIT TABLET PO SCH (10:22)
[2017-08-28] MEDS: *HR* Rivaroxaban 10 MG TABLET PO SCH (10:22)
[2017-08-28] MEDS: Metoprolol XL (24 HR) Succ 25 MG TAB.ER.24H PO SCH (10:23)
--- NOTE | 2017-08-28 11:47 | Internal Med Progress Note ---
Date of Encounter: 08/28/17 Time of Encounter: 10:40 - Assessment and plan (1) TANO (acute kidney injury) Current Visit: Yes Status: Acute Assessment and plan: Likely due to antihypertensive use and hypotension. Improving. Creatinine 1.33 today. Continue to monitor blood pressure. Continue IV fluids. (2) Hypotension Current Visit: Yes Status: Resolved Assessment and plan: Improved. Toprol-XL dosage decreased to 25 mg by mouth daily. Qualifiers: Hypotension type: hypotension due to drug Qualified Code(s): I95.2 - Hypotension due to drugs (3) CAD (coronary artery disease) Current Visit: Yes Status: Chronic Assessment and plan: Continue Plavix, statin. And beta huber. Qualifiers: Coronary Disease-Associated Artery/Lesion type: [place] artery [place] vs. transplanted heart: unspecified whether [place] or transplanted heart Associated angina: angina presence unspecified Qualified Code(s): I25.10 - Atherosclerotic heart disease of [place] coronary artery without angina pectoris (4) Paroxysmal atrial fibrillation Current Visit: Yes Status: Chronic Assessment and plan: Rate controlled. 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 Continue to monitor blood pressure closely. (6) DVT prophylaxis Current Visit: No Status: Acute Assessment and plan: Continue Xarelto - Subjective Interval history: Patient is awake and alert. Feeling better this morning. Denies any dizziness or lightheadedness. No palpitations. No chest pain. - Constitutional Vitals: Temp Pulse Resp BP Pulse Ox 98.1 F 64 13 118/69 95 08/28/17 06:45 08/28/17 06:45 08/28/17 06:45 08/28/17 06:45 08/28/17 07:34 General appearance: Present: A&O X 3, pleasant, no acute distress, answers questions appropriately - Neck Neck exam general surgery: Present: supple, trachea midline. Absent: lymphadenopathy - Respiratory Respiratory exam: Present: CTAB. Absent: accessory muscle use, rales, rhonchi, wheezes - Cardiovascular Cardiovascular exam: Present: RRR, +S1, +S2. Absent: diastolic murmur, gallop, rubs, systolic murmur - GI/Abdominal GI/Abdominal exam: Present: normal bowel sounds, soft, no peritoneal signs. Absent: distended, tenderness - Extremities Exam Extremities exam: Present: warm, radial pulses palpable and symmetrical. Absent : calf tenderness, cyanotic, pedal edema Internal Medicine: Result - Labs CBC & Chem 7: 08/28/17 08:33 08/28/17 08:33 Labs: Short CBC 08/28/17 Range/Units 08:33 WBC 5.1 (4.3-11.1) K/mcL Hgb 12.4 L (12.9-16.9) g/dL Hct 37.0 L (37.5-50.1) % Plt Count 167 (140-400) K/mcL Neutrophils # 2.4 (1.6-8.9) K/mcL BMP 08/28/17 08:33 Sodium 136 Potassium 3.8 Chloride 106 Carbon Dioxide 26 BUN 22 Creatinine 1.33 H Glucose 87 Calcium 8.4 L Cardiac Enzymes 08/28/17 Range/Units 06:05 Troponin I < 0.03 (< 0.04) ng/mL Consult Discharge Plan - Plan [facility]errals: [facility]Primary Care Provider[facility] -
[2017-08-28] MEDS ORDERED: Omega-3 Fatty Acids [Fish Oil] 300 MG PO SCH (21:00)
[2017-08-29 07:14] VITALS: BP 121/73
[2017-08-29] MEDS: 0.9 % Sodium Chloride 1,000 ML IVC SCH (08:06)
[2017-08-29 08:26] LABS: BUN/Creatinine Ratio 19 (6-26); Blood Urea Nitrogen 24 mg/dL (8-23); Calcium 8.8 mg/dL (8.6-10.3); Carbon Dioxide 26 mEq/L (23-29); Chloride 108 mEq/L (98-107); Glucose 88 mg/dL (70-105); Osmolality,Calculated 291 (280-300); Potassium 4.2 mEq/L (3.5-5.1); Sodium 139 mEq/L (136-145); eGFR For Non-African Americans 56 (> 60)
[2017-08-29] MEDS: *HR* Rivaroxaban 10 MG TABLET PO SCH (08:29)
[2017-08-29] MEDS: Metoprolol XL (24 HR) Succ 25 MG TAB.ER.24H PO SCH (08:30)
[2017-08-29] MEDS: Cholecalciferol (D-3) 1,000 UNIT TABLET PO SCH (08:30)
--- NOTE | 2017-08-29 10:37 | Discharge Summary ---
- NOTES TO OUTPATIENT PROVIDER Notes to Outpatient Provider: Patient presented with hypotension and acute kidney injury. Decreased dosage of metoprolol XL to 25 mg daily. Stop lisinopril for now. Follow up on his blood pressure and adjust medications accordingly. Orders not resulted at time of discharge: Pending orders 08/29/17 11:00 [employer] [[place]] Stat Date of Encounter: 08/29/17 Time of Encounter: 10:33 - Discharge Diagnosis (1) TANO (acute kidney injury) Priority: Primary Status: Resolved (2) Hypotension Priority: Secondary Status: Resolved Qualifiers: Hypotension type: hypotension due to drug Qualified Code(s): I95.2 - Hypotension due to drugs (3) CAD (coronary artery disease) Priority: Secondary Status: Chronic Qualifiers: Coronary Disease-Associated Artery/Lesion type: [place] artery [place] vs. transplanted heart: unspecified whether [place] or transplanted heart Associated angina: angina presence unspecified Qualified Code(s): I25.10 - Atherosclerotic heart disease of [place] coronary artery without angina pectoris (4) Paroxysmal atrial fibrillation Priority: Secondary Status: Chronic (5) Aortic dissection, abdominal Priority: Secondary Status: Chronic (6) DVT prophylaxis Priority: Secondary Status: Acute Hospital course: Mr. Lopez is a 72 year old male patient with history of atrial fibrillation, coronary artery disease, hypertension who was hospitalized here with acute kidney injury and hypotension. His blood pressure have been in the 60s according to his who checks his blood preserving morning. Patient had also not been taking his antihypertensives for the prior week. In the ER, he was found to have a creatinine of 1.87. His blood pressure was 84/55. As such he was hospitalized here and was treated with IV fluids. His metoprolol dosage was decreased to 25 mg daily and his lisinopril was held. With these changes, his blood pressure has improved. His renal function has also improved and is back to baseline. Renal ultrasound showed features of chronic kidney disease with no acute abnormalities. Presently he is stable to be discharged home. He will continue to take metoprolol at 25 mg daily. His lisinopril will remain on hold. He will follow up with his primary care provider for further management of his hypertension. Discharge discussed with: patient - Time Spent with Patient Total time spent providing and/or coordinating discharge services: Less than 30 minutes (25 min) - Discharge Medications Prescriptions: Metoprolol XL (24 HR) Succ [Toprol Xl] 25 mg PO DAILY #30 tab.er.24h Home Medications: Clopidogrel [Plavix] 75 mg PO DAILY 11/17/15 [History] Cholecalciferol (D-3) [Vitamin D] 1,000 unit PO BID 03/05/17 [History] Rivaroxaban [Xarelto] 20 mg PO DAILY 03/05/17 [History] Terazosin HCl 2 mg PO HS 03/05/17 [History] Isosorbide MONOnitrate (24 HR) [Imdur] 60 mg PO DAILY #30 tab.er.24h 03/08/17 [ Rx] HYDROcodone/Acet 10/325 mg [[place] 10-325 mg] 1 tab PO TID PRN 06/03/17 [History] Atorvastatin Calcium [Lipitor] 80 mg PO HS 08/28/17 [History] Metoprolol XL (24 HR) Succ [Toprol Xl] 25 mg PO DAILY #30 tab.er.24h 08/29/17 [ Rx] Allergies/Adverse Reactions: 3 Allergy/AdvReac Type Severity Reaction Status Date / Time No Known Allergies Allergy Verified 11/17/15 06:46 Date of admission: 08/28/17 00:13 [facility] care physician: [facility] Discharging clinician: Ortiz Keyes Anticipated date of discharge: 08/29/17 - Constitutional Vitals: Temp Pulse Resp BP Pulse Ox 97.4 F L 63 17 121/73 94 08/29/17 07:10 08/29/17 07:10 08/29/17 07:10 08/29/17 07:10 08/29/17 07:10 General appearance: Present: A&O X 3, pleasant, no acute distress, answers questions appropriately - Neck Neck exam general surgery: Present: supple, trachea midline. Absent: lymphadenopathy - Respiratory Respiratory exam: Present: CTAB. Absent: accessory muscle use, rales, rhonchi, wheezes - Cardiovascular Cardiovascular exam: Present: RRR, +S1, +S2. Absent: diastolic murmur, gallop, rubs, systolic murmur - GI/Abdominal GI/Abdominal exam: Present: normal bowel sounds, soft, no peritoneal signs. Absent: distended, tenderness - Extremities Exam Extremities exam: Present: warm, radial pulses palpable and symmetrical. Absent : calf tenderness, cyanotic, pedal edema - Neurological Exam Neurological exam: Present: CN II-XII intact, oriented X3, no focal deficits, strengths equal and symetr throughout. Absent: facial droop, speech deficit - Skin Skin exam: Present: dry, intact - Patient Status Disposition: Home, Self-Care Condition: Good Functional capacity at discharge: independent ambulation Overall status at discharge: patient is progressing back to baseline - Discharge Instructions Instructions: Atrial Fibrillation (DC), Peripheral Vascular Disorders (DC), Chronic Hypertension (DC) Follow Up With: [facility] [Primary Care Provider[facility] - 09/08/17 2:15 pm (in 1 week) Forms: ED Satisfaction Letter - Diet and Activity Activity: increase activity as tolerated Diet: low fat, low cholesterol, low salt diet
--- NOTE | 2017-08-30 18:23 | Electrocardiograph Report ---
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
== END 2017-08-29 14:49 | disposition home or self-care (01) | DRG 682 ==
LOC: EMEROO 20:07 → 2ANU 20:07
PROVIDERS: ADMIT Internal Medicine; ATTEND Internal Medicine